=== PATIENT | female | born 1985 | race Caucasian/White ===

== ENCOUNTER 2024-11-20 05:51 | Day surgery (SDC) | payer OTHER, SELFPAY ==
[2024-11-11 07:10] LABS: Hematocrit 40.9 % (37-47); Hemoglobin 13.8 g/dL (12.0-15.0); Mean Corp Hgb Conc 33.7 g/dL (32-36); Mean Corpuscular Hgb 32.8 pg (27.0-32.0); Mean Corpuscular Volume 97.1 fL (81-99); Mean Platelet Vol. 9.2 fl (6.2-12.0); Platelet Count 350 K/mm3 (150-450); RBC Distribution Width CV 12.6 % (11.6-14.6); Red Blood Count 4.21 M/mm3 (4.2-5.4); White Blood Count 7.1 K/mm3 (4.4-11.0)
[2024-11-20] VITALS (8 sets, daily range): BP systolic 117–135; BP diastolic 83–95; PULSE 60–81; RESP 16–18; TEMP 36.2–36.7; O2SAT 97–100; BMI 39.1
--- OUTSIDE RECORDS SUMMARY | 2024-11-20 05:53 | XMS RPT_ITS | CCD ---
Author Organization [facility] Care Team Providers Care Child Study Team Director Name Role Phone Eun Stevenson PA-C Primary Care Provider [phone] Sarbjit MEJIA, Nolberto Kruse Primary Care Provider [phone] Sarbjit MEJIA, Nolberto Kruse Primary Care Provider [phone] Kanwal CAMEJO.GABRIELLEShilpa Unavailable [phone] WISAM ECHOLS Attending Unavailable LINDA HYDE Referring Unavailable SARBJIT, NOLBERTO Kruse Primary Care Unavailable NOLBERTO GANNON Attending Unavailable SARBJIT, NOLBERTO Kruse Primary Care Unavailable WISAM ECHOLS Attending Unavailable WISAM ECHOLS Referring Unavailable SARBJIT, NOLBERTO Kruse Primary Care Unavailable WISAM ECHOLS Referring Unavailable SARBJIT, NOLBERTO Kruse Primary Care Unavailable ALLAN FRANCO Attending Unavailable SARBJIT, NOLBERTO Kruse Primary Care Unavailable WISAM ECHOLS Referring Unavailable SARBJIT, NOLBERTO Kruse Primary Care Unavailable WISAM ECHOLS Attending Unavailable SARBJIT, NOLBERTO Kruse Primary Care Unavailable Sarbjit, Nolberto Primary Care Unavailable Allan Franco Referring Unavailable Allan Franco Attending Unavailable Medications Current Medications Medication Drug Class(es) Dates Sig (Normalized) Sig (Original) meclizine hydrochloride 12.5 mg oral tablet (6 sources) Antiemetic Start: 09-08-2024 take 1 tablet by mouth every six hours as needed for dizziness and dizziness meclizine (ANTIVERT) 12.5 mg tab Indications: Dizziness Take 1 tablet by mouth every 6 hours as needed (for dizziness.). 30 tablet 09/08/2024 Active multivitamin tablet (18 sources) take 1 tablet by mouth once daily multivitamin tablet Take 1 tablet by mouth once daily. Active take 1 tablet by mouth once altaf y multivitamin tablet Take 1 tablet by mouth once daily. 0 Active Comment on above: Take 1 tablet by juan manuel th once daily. Problems Active Problems Problem Classification Problem Date Documented Date Episodic/Chronic Cancer of cervix (2 sources) Atypical squamous cells of undetermined significance on cervical Papanicolaou smear; Translations: [Atypical squamous cells of undetermined significance on cytologic smear of cervix (ASC-US)] 08-18-2024 Episodic Conditions associated with dizziness or vertigo (2 sources) Dizziness; Translations: [Dizziness and giddiness] 09-08-2024 Episodic Headache; including migraine (1 source) Migraine with aura; Translations: [Migraine with aura, not intractable, without status migrainosus] Chronic Immunizations and screening for infectious disease (11 sources) Patient encounter status; Translations: [Encounter for screening for human immunodeficiency virus [HIV]] Onset: 08-04-2024 Episodic Menstrual disorders (1 source) Dysmenorrhea; Translations: [Dysmenorrhea, unspecified] 11-02-2024 Chronic Other female genital disorders (4 sources) Polyp of corpus uteri; Translations: [Polyp of corpus uteri] Onset: 09-29-2024 09-29-2024 Episodic Other nutritional; endocrine; and metabolic disorders (20 sources) Obese class II; Translations: [Obesity, unspecified] Onset: 11-02-2022 Chronic Other screening for suspected conditions (not mental disorders or infectious disease) (8 sources) Cancer cervix screening status; Translations: [Encounter for screening for malignant neoplasm of cervix] Onset: 08-04-2024 07-26-2023 Episodic Residual codes; unclassified (2 sources) FH: Cardiomyopathy; Translations: [Family history of ischemic heart disease and other diseases of the circulatory system] 09-08-2024 Episodic Sexually transmitted infections (not HIV or hepatitis) (1 source) Human papillomavirus deoxyribonucleic acid test positive, high risk on cervical specimen; Translations: [Cervical high risk human papillomavirus (HPV) DNA test positive] 09-19-2023 Episodic Unclassified (1 source) Pre-Op Visit Onset: 11-02-2024 Past or Other Problems Problem Classification Problem Date Documented Da te Episodic/Chronic Unclassified (1 source) Endometrial polyp 11-18-2024 Results Test Name Value Interpretation Reference Range Facility CBC-Complete Blood Cnt No Di ffon 11-11-2024 Erythrocyte distribution width (RBC) [Ratio] 12.6 % Normal 11.6-14.6 [facility] Comment on above: Performed By: #### B TSPAT, L100.0500 #### [facility] [address] [place], [address] Hematocrit (Bld) [Volume fraction] 40.9 % Normal 37-47 [facility] Comment on above: Performed By: #### B TSPAT, L100.0500 #### [facility] [address] [place], [address] Hemoglobin (Bld) [Mass/Vol] 13.8 g/dL Normal 12.0-15.0 [facility] Comment on above: Performed By: #### B TSPAT, L100.0500 #### [facility] [address] [place], [address] MCH (RBC) [Entitic mass] 32.8 pg High 27.0-32.0 [facility] Comment on above: Performed By: #### B TSPAT, L100.0500 #### [facility] [address] [place], [address] MCHC (RBC) [Mass/Vol] 33.7 g/dL Normal 32-36 [facility] Comment on above: Performed By: #### B TSPAT, L100.0500 #### [facility] [address] [place], [address] MCV (RBC) [Entitic vol] 97.1 fL Normal 81-99 [facility] Comment on above: Performed By: #### B TSPAT, L100.0500 #### [facility] [address] [place], [address] Platelet mean volume (Bld) [Entitic vol] 9.2 fL Normal 6.2-12.0 [facility] Comment on above: Performed By: #### B TSPAT, L100.0500 #### [facility] [address] [place], [address] Platelets (Bld) [#/Vol] 350 10*3/uL Normal 150-450 [facility] Comment on above: Performed By: #### Zara TSPAT, L100.0500 #### [facility] [address] [place], [address] RBC (Bld) [#/Vol] 4.21 10*6/uL Normal 4.2-5.4 [facility] Comment on above: Performed By: #### Zara TSPAT, L100.0500 #### [facility] [address] [place], [address] RDW SD 45.0 fl High 35.1-43.9 [facility] Comment on above: Performed By: #### Zara TSPAT, L100.0500 #### [facility] [address] [place], [address] WBC (Bld) [#/Vol] 7.1 10*3/uL Normal 4.4-11.0 [facility] Comment on above: Performed By: #### Zara TSPAT, L100.0500 #### [facility] [address] [place], [address] Type AND Screen - PAT ONLYon 11-11-2024 Ab SCREEN GEL Negative Normal [facility] Comment on above: Order Comment: Reaso n for Laboratory Test SURGERY [id number] No N N S HYSTEROSCOPY D C Performed By: #### Zara TSPAT, L100.0500 #### [facility] [address] [place], [address] CNOVon 11-02-2024 CNOV Office Visit (OBGYWM ) JANELLE YAN ([id number]) 1985 F Date Time Provider Department 11/02/24 10:50 AM ALLAN FRANCO During your visit today, we recorded the following information about you: Pulse Respiration Blood pressure Weight 78/minute 16/minute 104/70 95.4 kg Height 1.575 m Allan Franco MD 11/02/2024 11:30 AM Signed DATE OF SERVICE: November 02, 2024 PROBLEM: endometrial polyp DIAGNOSIS: endometrial polyp PAST SURGICAL HISTORY: PAST SURGICAL HISTORY Procedure Laterality Date DELIVERY ONLY 2011 , low transverse x 3, PAST MEDICAL HISTORY: PAST MEDICAL HISTORY Diagnosis Date NEGATIVE MEDICAL HISTORY SUBJECTIVE: First day of menses heavy. Dysmenorrhea with periods. Regular menstrual cycles SOCIAL HISTORY: Social History Tobacco Use Smoking status: Never Smokeless tobacco: Never Vaping Use Vaping status: Never Used Substance Use Topics Alcohol use: Not Currently Comment: 1-2 every 3 months. Drug use: Never ALLERGIES No Known Allergies Current Outpatient Medications on File Prior to Visit Medication Sig meclizine (ANTIVERT) 12.5 mg tab Take 1 tablet by mouth every 6 hours as needed (for dizziness.). multivitamin tablet Take 1 tablet by mouth once daily. No current facility-administered medications on file prior to visit. EMB: Component FINAL DIAGNOSIS A. 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 HEENT: Normocephalic, atraumatic, Mucus membranes moist without lesions. SKIN: No lesions. CHEST: Clear to auscultation. No wheezes or rales. Good air exchange. HEART: Regular rate and rhythm No S3 or S4. No gallops or rubs. BACK: Nontender. ABDOMEN: Soft, non-tender, non-distended, no masses, no hepatosplenomegaly. LOWER EXTREMITIES: There was no pitting edema. ASSESSMENT: pre op PLAN: 1) Discussed r/b/a hysteroscopy, DANDC, polypectomy, possible progesterone IUD insertion in detail. The rationale for the proposed surgery was discussed in addition to risks, benefits, and alternatives. General pre- and post-operative care was reviewed. Questions were answered. After discussion, the patient indicated a desire to proceed with the planned surgery. Allna Franco DO Medical Decision Making: Problems: Moderate: New problem with uncertain prognosis Risk: Moderate: Decision on minor surgery w/ risk factors Medical Decision Making Level: 4 - Moderate Allergies As of Date: 11/02/2024 (No Known Allergies) Date Reviewed: 11/02/2024 Reviewed by: Allan Franco MD - Fully Assessed Reason for Visit: Pre-Op Visit [1235] Primary Visit Diagnosis:Endometrial polyp [N84.0] Other Visit Diagnoses:Visit for pre-operative examination [Z01.818] Dysmenorrhea [N94.6] Prescriptions as of 11/02/2024 - meclizine (ANTIVERT) 12.5 mg tab Take 1 tablet by mouth every 6 hours as needed (for dizziness.). - multivitamin tablet Take 1 tablet by mouth once daily. Problem List As Of Date 11/02/2024 Noted Resolved Obesity, Class II, BMI 35-39.9 [E66.812] 11/02/2022 Encounter Status:Closed by ALLAN FRANCO on 11/02/24 Normal [facility] HISTORY PHYSICALon HISTORY PHYSICAL HNO ID: [id number] Author: ALLAN FRANCO MD Service: ? Author Type: Physician Type: H&P Filed: 11/02/2024 11:30 Note Text: DATE OF SERVICE: November 02, 2024 PROBLEM: endometrial polyp DIAGNOSIS: endometrial polyp PAST SURGICAL HISTORY: PAST SURGICAL HISTORY Procedure Laterality Date DELIVERY ONLY 2011 , low transverse x 3, PAST MEDICAL HISTORY: PAST MEDICAL HISTORY Diagnosis Date NEGATIVE MEDICAL HISTORY SUBJECTIVE: First day of menses heavy. Dysmenorrhea with periods. Regular menstrual cycles SOCIAL HISTORY: Social History Tobacco Use Smoking status: Never Smokeless tobacco: Never Vaping Use Vaping status: Never Used Substance Use Topics Alcohol use: Not Currently Comment: 1-2 every 3 months. Drug use: Never ALLERGIES No Known Allergies Current Outpatient Medications on File Prior to Visit Medication Sig meclizine (ANTIVERT) 12.5 mg tab Take 1 tablet by mouth every 6 hours as needed (for dizziness.). multivitamin tablet Take 1 tablet by mouth once daily. No current facility-administered medications on file prior to visit. EMB: Component FINAL DIAGNOSIS A. 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 HEENT: Normocephalic, atraumatic, Mucus membranes moist without lesions. SKIN: No lesions. CHEST: Clear to auscultation. No wheezes or rales. Good air exchange. HEART: Regular rate and rhythm No S3 or S4. No gallops or rubs. BACK: Nontender. ABDOMEN: Soft, non-tender, non-distended, no masses, no hepatosplenomegaly. LOWER EXTREMITIES: There was no pitting edema. ASSESSMENT: pre op PLAN: 1) Discussed r/b/a hysteroscopy, DANDC, polypectomy, possible progesterone IUD insertion in detail. The rationale for the proposed surgery was discussed in addition to risks, benefits, and alternatives. General pre- and post-operative care was reviewed. Questions were answered. After discussion, the patient indicated a desire to proceed with the planned surgery. Allan Franco, Medical Decision Making: Problems: Moderate: New problem with uncertain prognosis Risk: Moderate: Decision on minor surgery w/ risk factors Medical Decision Making Level: 4 - Moderate Normal [facility] 10-01-2024 CNPN Telephone (OBGYWM) AJNELLE YAN ([id number]) 1985 F Date Time Provider Department 10/01/24 WISAM ECHOLS OBGYWClaudia During your visit today, we recorded the following information about you: Lani Edmonds, FRAN 10/01/2024 3:51 PM Signed Wisam Echols MD to [facility] 10/01/24 3:30 PM Result Note Recommend hysteroscopy with DANDC and polypectomy for an endometrial polyp. If patient OK with that plan I carlos alberto refer her to one of my partners for the procedure. Wisam Echols MD PELVIC US I Lani Edmonds, FRAN 10/01/2024 3:51 PM Signed Left message for patient to call office. FRAN Duran Trisha, RN 10/01/2024 3:57 PM Signed Patient notified. She is okay with proceeding with scheduling surgery. Doesn't care which surgeon, but does want [facility]. She does work a lot of weekends, so when Carlie calls her back may want to call with a few options too. Do you need a surgery sheet? FRAN Reyes Karmon, MD 10/01/2024 4:43 PM Signed Surgery sheet for SW completed MD Geri Li Trisha, RN 10/01/2024 4:48 PM Signed Surgery sheet given to Carlie. FRAN Reyes Annalee, LPN 10/06/2024 10:20 AM Addendum Left message to call office. Next available surgery dates are 10/29/[address] Franco and 11/06/[address] Franco or Dr. Nair or 11/20/[address] Franco or Dr. Harris at [facility]. Patient will need scheduled for a pre-operative appointment. Emily Bond RN 10/06/2024 10:42 AM Signed Patient called back she would like surgery on 11/[address] Franco. Pre Op appointment scheduled for 11/02. Emily Bond RN Allergies As of Date: 10/01/2024 (No Known Allergies) Date Reviewed: 09/15/2024 Reviewed by: Wisam Echols MD - Fully Assessed Reason for Visit: Results [95] Prescriptions as of 10/15/2024 - meclizine (ANTIVERT) 12.5 mg tab Take 1 tablet by mouth every 6 hours as needed (for dizziness.). - multivitamin tablet Take 1 tablet by mouth once daily. Problem List As Of Date 10/01/2024 Noted Resolved Obesity, Class II, BMI 35-39.9 [E66.812] 11/02/2022 Encounter Status:Closed by ALLEGRA NEVAREZ on 10/01/24 Normal [facility] 09-30-2024 Indication endometrial polyp Impression Normal appearing retroflexed uterus that measures 95 mm x 55 mm x 66 mm. Endometrium measures 9.5 mm and contains a 9 x 9 x 6 mm hyperechoic area which is suggestive of an endometrial polyp. Both ovaries are visualized and appear normal with follicular change. No adnexal masses were observed. There is free fluid visualized in the peritoneal cavity. Recommendations Consider hysteroscopic evaluation as clinically indicated. History Medical History Surgery: section x 3 Surgery: Tubal ligation Menstrual History LMP on 09/28/2024. Cycle: regular cycle. Contraception: tubal sterilization Method Transabdominal, transvaginal, 3D ultrasound examination, Color Doppler examination. View: Adequate visualization Uterus Uterus: Visualized Uterus position: retroflexed Description of uterine malformations: none Myometrium: heterogeneous Endometrium: possible polyp Cervix details: normal Uterus length 95 mm Uterus width 66 mm Uterus height 55 mm Uterus Vol 179.1 cm Endometrial thickness, total 6.5 mm Fibroids: No fibroids identified Polyps: Polyps identified Uterine polyp D1 9 mm Uterine polyp D2 9 mm Uterine polyp D3 6 mm Uterine polyp mean 8.0 mm Uterine polyp findings: Anterior Right Ovary Rt ovary: Visualized Rt ovary morphology: premenopausal normal follicular Rt ovary D1 39 mm Rt ovary D2 22 mm Rt ovary D3 26 mm Rt ovary Vol 11.2 cm Left Ovary Lt ovary: Visualized Lt ovary morphology: premenopausal normal follicular Lt ovary D1 29 mm Lt ovary D2 23 mm Lt ovary D3 14 mm Lt ovary Vol 4.8 cm Cul de Sac Visualized. free fluid visualized: small Performed By: Ronda Araya RDMS Read By: Michelle Griggs M.D. MATERNAL MEDICINE [facility] 09-29-2024 Radiology Study observation (narrative) [facility] Pathology biopsy report Fabricio (Tiss)Ordered By: Dolores Bailey on 09-16-2024 Case Report Surgical Pathology Report Case: [id number] Authorizing Provider: Wisam Echols MD Collected: 09/15/2024 10:46 AM Ordering Location: OB/Gynecology Received: 09/15/2024 01:17 PM Pathologist: Dolores Bailey MD Specimen: Endometrium, Biopsy [facility] Work Phone: Clinical History [id number] bG KfGoLyQnSfJwPjBwp1TSRv ffI3Cbx3TQJbMGumgL9xIL RkYHvxE8lkraDgqLLkBXHl FGr7wC6ouQxeuE8nUaQcEi BqPATOR6XFJYZrxIxlIWIk fQ== [facility] Work Phone: Diagnosis Comment b4ublYViFYGioBPdFDFj NV fssyVjPVIgeKHjI6Gvsssc PImrXB3fYY4moWxxjPHbwT GlVPWwIaRxh1jzs038lMLy x3beHLOVcvndwLt9tImxL1 9bb2H1YyrzB06btUKyWAC4 HSClBVZeaTGiRWWaXET8EC JdjPDsW4tqROKhWV1yxwlc HQhwLWwbGRBjaFM0WHLhzH LnZ6YxQFEbUQgyXTZdrjo9 CdYnFj0bfILldNmfPMnzEG JkXHBsYWluXGZzMjBccGFy NWZvLZGlxV3coZ9wjqXogw N5rWxpGKLvCO7bOHBdeWEr JAEiz0TayDZdsjOzk4YiOP Xmz8FmfIBat1LlcOdfPPZi dGllbnQncyByZWNlbnQgUG VkLAWzy7QtgjSkbAx4ZXtM FcK7LBVzLDo3DnbbTKrzSK J9 [facility] Work Phone: Disclaimer x3rgiZAyHFYqo4wtXVCm bG FuZzEwMzNcZnRuYmpcdWMx IHtccnRmMVxlcGljMTExMD Wnx9ert4sydDAjIBEya8vg p1RspQToxXDtUGusdQSbsg Oqni89vHC9cW21BK7uHTRn OlQ7JKBiekZ4Bua5BEYtJY TywFFrW376h8nci1uryhUt eIW7SMDsJXHdF3HnIN8gWA OwxATnS81cePBdRZW2AYUw KQZlgLEmUKNeBAU5SNCcjA WlI2cyLXHvKR7sulmzKGxr BHdfLWFngAQ7HODvvQJoL5 TvAISwIPdjYWXaplj4NeFx Bv7krPCvdBfqHKyeD7ilmB 4wMuE4BMwxW6syqJ9iMZo5 JZrqSPAukZB9wiN0QWPgrY RiD1QweW4lGVZmTJ7stxd5 s0juQHC8WZpvZVYzYlA7om C8GMFfmVKzYTburMAajlnp LWRqDMUmD4GgCSxjMh9sPI BtddelNNZ6LNvddJCiPWXv n1QwEJgIVNycNLylC9bqiP 1lcjpccGFyXGIwXGNmMCBQ EJEpe2IbPP0sGXJgqIDqMI U6YKAsc9KsR1Wxo1VjsW5i nV4ikYvbbV6vdAUmnLFobQ nrjU5nwJ3hHuq0i0Mqa2Uo zuQiKUVnEBPueVUpmN6oCK 9qFyFuxc2pjTI9EHh1HsTy ZCo4MHYsc76roMEwaJIcfQ S5UGSfCRJhTBMtbTExeMdl ZWQgYnkgdGhlIHBlcmZvcm 4bifbceYLap5SbbV7teJW6 jQUdzX1dF4bgwfTbHW6xKE VdyN3rOiczQIJxFoGceQUK HpPLd96oxBIwLLYecZvffG 7hiKRprqXiVTNxf1ZmrH8a nOADXREcV3qdMYWIJYSnra IhJN40HOdWEHxwDTOvbJD7 dgNXe8WokRQpfMcaTNift5 8zM2QsGXZlzXISc5HaySEs eCzbOtmgresqIXDTGTT0p1 1iTM1qnXu5IWraUC3iqdM0 QDkxr2QftMBdRPXNdsWgBP 8uNyt2POStWOWnqYTqiEIF SY59QZJyVR7cglHypxLWJQ CvnTvnVr3odMgoTL6iaZu4 CInySY5oOSPuiS1tLVwvm7 UpcKXbWQNiocLfQO8fsp3u nbCla34lbTF2SB85PJurgC knN4zQAXEcJUM1nQTzpDXx qQPvBM6jFEXxniAid6BjBV 3xLDDrVUCcMVDrx6YiGR3v rCBwj3CxiBQ1JFAmGXTdPD YrJVYuDRZkp8CdNAZjzk44 XIRvQguanCefHOJQHE8wWw RgUFpVIKidABKjL8ZlOZDy PVG2pyZrnxXCGXkQBKMjZW B5SXasLmxnKOO9ocNsJRBt q9WcPJgvH4jzO64zjUownV b0yCU1RKI1lM4xDuPZgVQw IRH4YAL2edViddFbtSYsXF Igz4MjR0iputesHEispKTz cM1eSNSoTEVwFECjTXQmd0 VjDVPhf3AdHeWwehQySAJd JQAaOWXzlL25YYB0vPkhkZ omktFmXG0dFZCploPdEWXf JWAgqA7dIX2idWSdxtBjIH 0jME2dL3H9sFRqJRFbvyLz d8ekDCV8OMxiPWRveGUosS LrRXPwuYvpQBAoya11 [facility] Work Phone: FINAL DIAGNOSIS o9yipEUbEVEreOOwPCXf NV iothTfXICxaNOrY6Ydwzgz BSrpWE3bNR0iyLomiCPhjT CsTQVjAgFyu8rts947iTZk e0txQUUOoidtjPz6mGdnK7 5ik2Q9DtedP77rsOKsOBN8 KCWdKISbvCXhOGKmXCR2EN OtwEFdI4vkSMYfDX9jhojp QUbfDGjhYJUbfAF5MGMvvU QwV5StDVPoGKitKBPzsdo7 KpVcYl4otAIaeVurYGyjGJ JkXHBsYWluXGZzMjBccGFy SCUlTGI8QWI9finkCQ7qt3 8prYStrG6kESAsr4KtmZyt PNDkRERse76pPSQsHGFjmA DjsPxcDVXaoQh8ECJevgNh nYV4ubk5nJT7zLZxVPAwtf 1lfWBcRJ9zx32deGDkeQbl BGcdMKAjR96vyGExxBhxpW MxME5QbpPvhCDhmFTkj4Uv BuDneXfjUCKeRQ8cZSCpoV FsIHBvbHlwXHBhclxwYXJ9 [facility] Work Phone: Gross Description p6klyLJnKIYgbGWmDSVa NV xvxvGeRKGrgJQxN5Uculvo VVplTX6oQN7wbVeqyPZdyZ BlVMAfZaXit4xpq858dXSi i5okDQDGpkpjfMh8wWrmB9 0jc8B7RlxsX54teDRfRXC6 TDZsSMTesAUtHUNlEUK7WJ GjsKNbZ8vkZXNfFC9gshhc RJjpLBqvGTYpsUV6KNCeeE GzK3KeYDTeGHvdCFEjaqj7 GhXwQq1sxHRvdAagTVtiWl pxxDcqb8JxdRAhAVmiVGJg MMWfYFjtyjscABi4NAUxSD avyXIhDM5wsVpvTfanzTip u9DfhEFiJSxdMAMlAZVbDA nmMBJqO7XRSWAzYBV2WQDh VxMoLIv4JNv6AY8HWpPwMK W0ZICuLezsZjKuXVl2VOht SG2SJOM4RCE8ZBCwTharZR L2UdB0JYjssPLjEKiwq7Lf MyBcXGZsIFxcbmMgXFxmcn 1ccGFyZFxwbGFpblxmczIw TMLqZOZzEV6xTSGvdGVxAM YRhC9wo7yfuPTlXEKrpqNt b2RxRXotaKowRSEeNiYixG nfnE2mZsYbRIWDDXDxkCDp TSQhgqCxr5NoJHoynmFsxe UgbXVsdGlwbGUgdGFuLCBz n7C3DXLmFAUjWKE5JVTlI9 2stmMiQP9fWIYrv7D6JIPs wInvBPC6hCFmTExejSN3oD 8tiEYinZL6QTVgHXvzDTpk kbPkJETzgtfgbK0zQf40HJ ysLk2iIEmqBP77WEGrGjBN n7CqgQp6PLD1Nx1pjALyLY PzdaLshrArP0Pff1B8oISx IFxwYXJccGFyZFxwYXIgQ0 wgQXByaWwgMjIsIDIwMjUg NVy4MVEWWMkgMBTqf4RoXI ynoGbeAHYuXmWhH2Mbt6Eo XSgbvIzkXCJbp08joJKuCn 1bbDZbPRF6UBGrPSKqwJGy VWAEgOhngGQvNQi8TRZnPE UibSlhDND8KV6kDMTvFEBq zCXbGOzcV6zjZUMaHGQ7BW OphDXqDPN5AD2poUqdGLRt S2AzJ2BvxiE0ARGnab6= [facility] Work Phone: Performing Lab r9sqsJGvHAVvjEDtXCIj Ml nhdzHhVFZktBWnV0Plsify RVclKK2iIU0kqUcdrLLtkW KdWEQrTtYvi5ilo410iNVz n9hbEXPTqrklpVx2hQicC0 4vs2F0DxkkK07uwUNlZGK6 TUQyJCTwzSXgMBDeQRP1FV UiuIMoL7tfSWYkRD5cgihv UMxoSZqhMPTscSM8BRYmwO YgN9XaMSEcNHrwONAkrbi8 VcJfQk4xoNFlmAobQVxjO6 nahQ5kJuA0CBwfE9xovD2n QUh2DRitBWObeRW0jmQ6QD SjxAVnG0SeiK6hZECjCH8j kka1f6mhPLE0ZHsqEUQaPk T0bpQ3ORHazZEnGYqrkZGq otjxliJwLFYjJIgto1D2lA JqvX61LLVyflA6TROgn30p rGWpQb8ppJMbUCX4GvWXrT Y2FKojuvBuI9tyuvzpLG7c mJ9rI1BwxFTfXJycp6FaeG OzJYddSn1fHLKhmrdgWZd0 HXHkVODwcSooJII4HU08SC wgRGVzayBMMjEsIENsZXZl zGTiRIVIHQH0MRS9WOIzRT HKZKCpFVV8KPG6RIVeYNKj iNEkCCziJKMvSFEsv1YebI 1wrIRUiRIcG2DuxsoeH5Fm jDLdUBrpshYjO9zvWBOMDP xwYXJ9 [facility] Work Phone: [facility] Work Phone: CNOVon 09-15-2024 CNOV Office Visit (OBGYWM ) JANELLE YAN ([id number]) 1985 F Date Time Provider Department 09/15/24 10:10 AM WISAM ECHOLS During your visit today, we recorded the following information about you: Blood pressure Weight Last Period 138/80 96.2 kg 09/01/24 Wisam Echols MD 09/15/2024 10:42 AM Signed Medical Laboratory Manager offered: Patient accepts, visit chaperoned by Malka Agustin MA. Janelle is a 39 year old Female who presents today for an endometrial biopsy for MIESHA pap. test: negative UNIVERSAL PROTOCOL / SAFETY CHECKLIST Procedure to be Performed: Endometrial Biopsy Sign In: A Moment of CARE was completed. Appropriate PPE (Personal Protective Equipment) worn by all providers involved with the procedure. Special equipment not required. Patient/Surrogate Stated/Verified: Patient name, Date of , Relevant allergies, and The intended procedure Time Out: Relevant labs, photos, and/or imaging studies have been reviewed. Intended patient and procedure match the source document(s) (e.g. consent, HANDP, associated studies [imaging, pathology]) match the intended patient and procedure. Consent obtained and matches the intended procedure. Yes. Correct side/site is not applicable. Medications required for this procedure are verified. are not applicable. Fire risk assessed and is not applicable. Implants: are not applicable. Sign Out: Specimens are all correctly labeled and sent. All instruments, equipment, possible retained foreign bodies are accounted for. Yes. The post-procedure plan of care has been communicated to the patient or surrogate. PROCEDURE: EXTERNAL GENITALIA: Normal in appearance without lesions VAGINA: Normal in appearance without lesions BIOPSY: Speculum placed into the vagina with excellent visualization of the cervix. Cervix cleaned with betadine. Anterior lip of cervix grasped with single toothed tenaculum. Uterus sounded to 8 cm. Pipelle inserted into the uterus without difficulty and endometrial biopsy obtained. Specimen labeled and sent to pathology. Hemostasis achieved. Procedure Summary: Patient tolerated procedure well. ASSESSMENT: MEISHA pap PLAN: Specimens labeled and sent to Pathology. Will notify patient of results in 1-2 weeks. MD Vamsi Li Amanda, MA 09/15/2024 10:04 AM Signed YOUR RECOVERY After your biopsy you may have: Vaginal bleeding (less than a normal menstrual period) Mild cramping Do NOT put anything in the vagina for 1 week after your endometrial biopsy. This includes: tampons douches and refraining from having sexual intercourse If you have any discomfort, you may take an over the counter pain medication (motrin, advil, ibuprofen, tylenol, etc). If this does not relieve your discomfort, contact the office. It is okay to wear a sanitary pad until the discharge and spotting stops. RISKS Although problems seldom occur with endometrial biopsies, there can be some complications. You may feel faint during and shortly after the procedure as well as have some bleeding after the procedure. There is also a risk of infection after the procedure. These complications are rare and can be easily treated. You should contact you doctor is you have any of the following: Heavy bleeding (more than your normal period) Bleeding with clots Severe abdominal pain Fever (more than 100.4F) Foul smelling vaginal discharge RESULTS We will have the results of your biopsy in 1-2 weeks. If you do not hear the results of your biopsy after 2 weeks, please contact the office for the results. If you have any additional questions or concerns please do not hesitate to contact the office. Referring Provider: WISAM ECHOLS [[id number]] Allergies As of Date: 09/15/2024 (No Known Allergies) Date Reviewed: 09/15/2024 Reviewed by: Wisam Echols MD - Fully Assessed Reason for Visit: Endometrial Biopsy [1643] Primary Visit Diagnosis:Atypical glandular cells of undetermined significance (MIESHA) on cervical Pap smear [R87.619] Order(s):UA DIP,URINE HCG (POC) [[id number]] Order #: [id number]. #:[id number] ENDOMETRIAL BIOPSY [[id number]] Order #: [id number] SURGICAL PATHOLOGY [[id number]] Order #: [id number] Prescriptions as of 09/15/2024 - meclizine (ANTIVERT) 12.5 mg tab Take 1 tablet by mouth every 6 hours as needed (for dizziness.). - multivitamin tablet Take 1 tablet by mouth once daily. Problem List As Of Date 09/15/2024 Noted Resolved Obesity, Class II, BMI 35-39.9 [E66.812] 11/02/2022 Other instructions from your clinician: YOUR RECOVERY After your biopsy you may have: Vaginal bleeding (less than a normal menstrual period) Mild cramping Do NOT put anything in the vagina for 1 week after your endometrial biopsy. This includes: tampons douches and refraining from having sexual intercourse (more content not included)... [facility] Pathology biopsy report Fabricio (Tiss)on 09-15-2024 AP DISCLAIMER [facility] Comment on above: Order Comment: Speci men Type: TISSUE SPECIMENOrdering Facility: [facility] Address: [address] [place] [address] Result Comment: Alfonzo bush Developed Test (LDT) Disclaimer: Performance characteristics of immunohistochemical, immunofluorescent, and chromogenic in-situ hybridization tests have been determined by the performing laboratory within [facility]'s [facility] Pathology and Laboratory Medicine Department ([facility], [facility], [facility], [facility], [facility], [facility], or [facility]) in a manner consistent with CLIA requirements. One or more of these tests may not have been cleared or approved by the FDA. RT-PLM is regulated under CLIA as qualified to perform high-complexity testing. These tests are used for clinical purposes. These should not be regarded as investigational or for research. Positive and negative controls stain appropriately. Performed By: #### 6 6121-5 ####[facility] LABCLIA [id number] [place] [id number] [place] CASE REPORT [facility] Comment on above: Order Comment: Speci men Type: TISSUE SPECIMENOrdering Facility: [facility] Address: [address] [place] [address] Result Comment: Surg ica Pathology Report Case: [id number] Authorizing Provider: Wisam Echols MD Collected: 09/15/2024 10:46 AM Ordering Location: OB/Gynecology Received: 09/15/2024 01:17 PM Pathologist: Dolores Bailey MD Specimen: Endometrium, Biopsy Performed By: #### 6 6121-5 ####[facility] LABCLIA [id number] [address] [address] [place] CLINICAL HISTORY MIESHA pap Normal [facility] Comment on above: Order Comment: Speci men Type: TISSUE SPECIMENOrdering Facility: [facility] Address: [address] [place], [place] [address] Performed By: #### 6 6121-5 ####[facility] LABCLIA [id number] [address] [place] [address] [place] DIAGNOSIS COMMENT Normal [facility] Comment on above: Order Comment: Speci men Type: TISSUE SPECIMENOrdering Facility: [facility] Address: [address] [place] [address] Result Comment: The findings in this endometrial biopsy do not account for the patient's recent Pap test result ([id number]). Performed By: #### 6 6121-5 ####[facility] LABCLIA [id number] [place] [id number] [place] FINAL DIAGNOSIS [facility] Comment on above: Order Comment: Speci men Type: TISSUE SPECIMENOrdering Facility: [facility] Address: [address] [place] [address] Result Comment: A. 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 (see comment) -Fragments of benign endometrial polyp at 1532 EDT Performed By: #### 6 6121-5 ####[facility] LABCLIA [id number] [address] [place] [address] [place] FINAL PERFORMING LAB Normal [facility] Comment on above: Order Comment: Speci men Type: TISSUE SPECIMENOrdering Facility: [facility] Address: [address] [place] [address] Result Comment: Diag nostic interpretation performed at: [facility], [address] [place] [address] CLIA# [id number] Damage Inside Adjuster: Trever Mckeon MD Performed By: #### 6 6121-5 ####[facility] LABCLIA [id number] [place] [address] [place] GROSS DESCRIPTION Normal [facility] Comment on above: Order Comment: Speci men Type: TISSUE SPECIMENOrdering Facility: [facility] Address: [address] [place] [address] Result Comment: A. E ndometrium, Biopsy Received in formalin are multiple garces, soft feathery segments of tissue mixed with gelatinous material aggregating to 2.6 x 2.0 x 0.4 cm. Totally submitted in one cassette. CL September 15, 2024 9:54 PM Gross examination performed at [facility], [address] [place] [address] Performed By: #### 6 6121-5 ####[facility] LABIA [id number] [place] [address] [place] UA DIP,URINE HCG (POC)on Beta HCG ( test) Ql (U) Negative Negative [facility] Comment on above: Location:[facility], [facility] [place], [address] Glass Embosser (POCT) Internal QC [facility] Location:[facility], [address] [place], [place], [address] [place] [address] POINT OF CARE [facility] CNOVon 09-08-2024 CNOV Office Visit (INTMWS ) JANELLE YAN ([id number]) 1985 F Date Time Provider Department 09/08/24 9:00 AM NOLBERTO GANNON INTMWS During your visit today, we recorded the following information about you: Pulse Blood pressure Weight 70/minute 123/82 96 kg Nolberto Gannon MD 09/08/2024 10:00 AM Signed This note was created using Kenguruter. Subjective Patient presents with: Dizziness Nausea Recording using ambient Vizimax software for draft documentation of the visit was discussed with the patient/authorized lead generation representative; all questions welcomed and answered. Patient/authorized lead generation representative agreed to proceed Janelle is a 39-year-old female, with a family history of hypertrophic cardiomyopathy, presenting with episodes of dizziness and nausea. Janelle reports two recent episodes of dizziness and nausea upon getting out of bed, one occurring yesterday and the other approximately two weeks prior. Each episode lasted almost the entire day and half a day, respectively. She describes the dizziness as similar to vertigo, with a sensation of imbalance. During these episodes, she also felt hot and flushed but denies any fever. She denies any weakness, numbness, emesis, syncope, or near-syncope. She also denies any respiratory symptoms, otalgia, hearing loss, chest pain, tightness, palpitations, or dyspnea. She did experience a headache during the episodes. She denies any issues with vision that could be contributing to the dizziness. Janelle checked her blood pressure yesterday, which was 141/76, higher than her usual readings in the 120s/80s. Her blood pressure was normal today. She has a family history of hypertrophic cardiomyopathy, with her brother being affected. Her children have been evaluated by a meter calibrator and were supposed to undergo genetic testing, which has not been done yet. She has not had an EKG herself. She also reports experiencing seasonal allergies, which is new for her, with symptoms of rhinorrhea and eye itching. She has had occasional tinnitus a few weeks ago but denies any recent episodes. She denies any issues with depression or anxiety and has not had any recent issues with migraines, except for one incident where she noted peripheral vision changes 2 years ago.. Review of Systems Per HPI. ACTIVE PROBLEM LIST Obesity, Class II, Bmi 35-39.9 Social History Tobacco Use Smoking status: Never Smokeless tobacco: Never Vaping Use Vaping status: Never Used Substance Use Topics Alcohol use: Not Currently Comment: 1-2 every 3 months. Drug use: Never Current Outpatient Medications Medication Sig multivitamin tablet Take 1 tablet by mouth once daily. No current facility-administered medications for this visit. Objective BP 123/82 (BP Site: Left Arm, BP Position: Supine, BP Cuff Size: Large Adult) Pulse 70 Wt 96 kg (211 lb 10.3 oz) LMP 07/12/2024 (Exact Date) BMI 38.71 kg/m? Physical Exam Constitutional: Appearance: She is not ill-appearing. HENT: Head: Normocephalic. Right Ear: Tympanic membrane normal. Left Ear: Tympanic membrane normal. Nose: No congestion or rhinorrhea. Mouth/Throat: Mouth: Mucous membranes are moist. Pharynx: Oropharynx is clear. Eyes: Extraocular Movements: Extraocular movements intact. Right eye: No nystagmus. Left eye: No nystagmus. Conjunctiva/sclera: Conjunctivae normal. Pupils: Pupils are equal, round, and reactive to light. Cardiovascular: Rate and Rhythm: Normal rate and regular rhythm. Heart sounds: No murmur heard. No gallop. Pulmonary: Breath sounds: Normal breath sounds. Musculoskeletal: Right lower leg: No edema. Left lower leg: No edema. Neurological: Mental Status: She is alert. Cranial Nerves: No cranial nerve deficit. Sensory: No sensory deficit. Motor: No weakness. Coordination: Coordination normal. Gait: Gait normal. EKG RESULTS: Low voltage QRS, otherwise normal. Assessment and Plan 1. Dizziness - ICD9: 780.4, ICD10: R42 (primary diagnosis) Consistent with vertigo. - ECG COMPLETE - MECLIZINE 12.5 MG TABLET See printed instructions or information. 2. Family history of hypertrophic cardiomyopathy - ICD9: V17.49, ICD10: Z82.49 Baseline EKG done. - ECG COMPLETE 3. Screening for depression - ICD9: V79.0, ICD10: Z13.31 - DEPRESSION SCREENING 4. Encounter for screening examination for other mental health and behavioral disorders - ICD9: V79.8, ICD10: Z13.39 - ANXIETY SCREENING MD Sarbjit Yan Victor H, MD 09/08/2024 9:54 AM Signed We discussed your recent episodes of dizziness and nausea: - These symptoms are consistent with vertigo. - I sent a prescription for Meclizine 12.5 mg to your preferred [facility] pharmacy. Take one tablet every 6 hours as needed for dizziness. - Avoid sudden movements of your head to help prevent dizzine (more content not included)... [facility] [id number] 09-08-2024 ECG01 Ventricular Rate : 6 7 BPM Atrial Rate : 67 BPM P-R Interval : 186 ms QRS Duration : 76 ms Q-T Interval : 412 ms QTC Calculation(Bazett) : 435 ms Calculated P State [place] : 7 degrees Calculated R State [place] : 16 degrees Calculated T State Line : 23 degrees NORMAL SINUS RHYTHM Confirmed by MD SIMS QARAB ([id number]) on 09/09/2024 4:44:47 PM NAME : JANELLE YAN PID : [id number] : 1985 Gender : Female Race : ORD : Procedure Date : Sep 08 2024 09:49:56 Edit Date : Sep 09 2024 16:44:48 Diagnosis: NORMAL SINUS RHYTHM Confirmed by MD SIMS QARAB ([id number]) on 09/09/2024 4:44:47 PM Test Reason : Location : [facility] : [facility] Overread By : MD SIMS QARAB Edited By : MD SIMS QARAB Referred By : Nolberto Gannon Acquired by : Negar Reeder [facility] CNOVon 08-18-2024 CNOV Office Visit (OBGYWM ) JANELLE YAN ([id number]) 1985 F Date Time Provider Department 08/18/24 9:00 AM WISAM ECHOLS OBSYLVIAWClaudia During your visit today, we recorded the following information about you: Blood pressure Weight 118/78 95.1 kg Wisam Echols MD 08/18/2024 9:30 AM Signed Medical Laboratory Manager offered: Patient accepts, visit chaperoned by Malka Agustin. MA. Luis is a 39 year old Female who presents today for a colposcopy. The patient's last pap smear was ASCUS with positive HPV from July 2024. Patient has a history of abnormal pap: Yes. The patient has had prior treatment: Colpo. test: negative UNIVERSAL PROTOCOL / SAFETY CHECKLIST Procedure to be Performed: Colposcopy with Possible Biopsy Sign In: A Moment of CARE was completed. Appropriate PPE (Personal Protective Equipment) worn by all providers involved with the procedure. Special equipment not required. Patient/Surrogate Stated/Verified: Patient name, Date of , Relevant allergies, and The intended procedure Time Out: Relevant labs, photos, and/or imaging studies have been reviewed. Intended patient and procedure match the source document(s) (e.g. consent, HANDP, associated studies [imaging, pathology]) match the intended patient and procedure. Consent obtained and matches the intended procedure. Yes. Correct side/site is not applicable. Medications required for this procedure are verified. Fire risk assessed and is not applicable. Implants: are not applicable. Sign Out: Specimens are all correctly labeled and sent. All instruments, equipment, possible retained foreign bodies are accounted for. Yes. The post-procedure plan of care has been communicated to the patient or surrogate. PROCEDURE: EXTERNAL GENITALIA: Normal in appearance without lesions VAGINA: Normal in appearance without lesions CERVIX: Speculum placed in vagina and excellent visualization of cervix achieved. Cervix swabbed x 3 with 3% acetic acid solution. Cervix grossly normal. Squamocolumnar junction visualized. No acetowhite changes, punctations, mosaicism or atypical vasculature noted. BIOPSY: Done at 3:00, 6:00, 9:00, and 12:00 ECC: done HEMOSTASIS: Obtained with silver nitrate and pressure Procedure Summary: Patient tolerated procedure well and colposcopy was adequate. ASSESSMENT: Atypical squamous cells of undetermined significance (ASC-US). Atypical glandular cells, endocervical type. HRHPV 16 positive PLAN: Specimens labeled and sent to Pathology. Will notify patient of results in 1-2 weeks. Post-procedure instructions reviewed and written material given to the patient. If indicated, lesion by colpo is amenable to office LEEP as lesion is small. MD Vamsi Li Amanda, MA 08/18/2024 9:01 AM Signed YOUR RECOVERY It may take a few weeks for your cervix to heal. While your cervix heals, you may have: - Vaginal bleeding (less than a normal menstrual period) - Mild cramping - A brown-black vaginal discharge (similar to coffee grounds) which is a result of the paste used to help stop bleeding from the procedure Do NOT put anything in the vagina for 1 week after your colposcopy if your doctor does a biopsy of your cervix. This includes sex, tampons, and douches. If you have any discomfort, you may take an over the counter pain medication (motrin, advil, ibuprofen, tylenol, etc). If this does not relieve your discomfort, contact your doctor's office for a prescription strength pain medication. It is okay to wear a sanitary pad until the discharge and spotting stops. RISKS Although problems seldom occur with colposcopy, there can be some complications. You may feel faint during and shortly after the procedure as well as have some bleeding and vaginal discharge after the procedure. There is also a risk of infection after the procedure. These complications are rare and can be easily treated. You should contact you doctor is you have any of the following: - Heavy bleeding (more than your normal period) - Bleeding with clots - Severe abdominal pain - Fever (more than 100.4F) - Foul smelling vaginal discharge RESULTS If a biopsy was taken, we will have the results of your biopsy in 1-2 weeks. If you do not hear the results of your biopsy after 2 weeks, please contact your physicians office for the results. Depending on the biopsy results, your doctor will determine your follow up plan which may include further testing or treatments. STAYING HEALTHY After the procedure, you will need to see your doctor for follow up visits during the year. At these visits your doctor will check the health of your cervix with a pap smear. After three normal pap smears, your doctor will allow you to return to having exams once a year. If you have another abnormal pap smear, you may need closer follow up for longer or you may (more content not included)... [facility] Pathology biopsy report Fabricio (Tiss)on 08-18-2024 AP DISCLAIMER [facility] Comment on above: Order Comment: Speci men Type: TISSUE SPECIMENOrdering Facility: [facility] Address: [address] [place] [address] Result Comment: Alfonzo bush Developed Test (LDT) Disclaimer: Performance characteristics of immunohistochemical, immunofluorescent, and chromogenic in-situ hybridization tests have been determined by the performing laboratory within [facility]'s [facility] Pathology and Laboratory Medicine Department ([facility], [facility], [facility], [facility], [facility], or [facility]) in a manner consistent with CLIA requirements. One or more of these tests may not have been cleared or approved by the FDA. RT-PLM is regulated under CLIA as qualified to perform high-complexity testing. These tests are used for clinical purposes. These should not be regarded as investigational or for research. Positive and negative controls stain appropriately. Performed By: #### 6 6121-5 ####[facility] LABCLIA [id number] [address] [place] [address] [place] CASE REPORT [facility] Comment on above: Order Comment: Speci men Type: TISSUE SPECIMENOrdering Facility: [facility] Address: [address] [place] [address] Result Comment: Surg [facility] Pathology Report Case: [id number] Authorizing Provider: Wisam Echols MD Collected: 08/18/2024 09:29 AM Ordering Location: OB/Gynecology Received: 08/18/2024 12:00 PM Pathologist: Gale Singh MD Specimens: A) - Endocervix, Curettings B) - Cervix, Biopsy, 3 C) - Cervix, Biopsy, 6 D) - Cervix, Biopsy, 9 E) - Cervix, Biopsy, 12 Performed By: #### 6 6121-5 ####[facility] LABCLIA [id number] [address] [place] [address] [place] CLINICAL HISTORY Positive Normal [facility] Comment on above: Order Comment: Speci men Type: TISSUE SPECIMENOrdering Facility: [facility] Address: [address] [place] [address] Performed By: #### 6 6121-5 ####[facility] LABCLIA [id number] [address] [address] [place] FINAL DIAGNOSIS [facility] Comment on above: Order Comment: Speci men Type: TISSUE SPECIMENOrdering Facility: [facility] Address: [address], [place] [address] Result Comment: A. E ndocervix, curettage: Fragments of benign inflamed squamous mucosa and scant endocervical mucosa. B. Cervix, 3:00, biopsy: Benign squamous mucosa and scant endocervical mucosa. C. Cervix, 6:00, biopsy: Benign squamous mucosa. D. Cervix, 9:00, biopsy: Benign squamous mucosa. E. Cervix, 12:00, biopsy: Fragments of superficial benign squamous mucosa. at 1453 EDT Performed By: #### 6 6121-5 ####[facility] LABCLIA [id number] [address] [address] [place] FINAL PERFORMING LAB Normal [facility] Comment on above: Order Comment: Speci men Type: TISSUE SPECIMENOrdering Facility: [facility] Address: [address] [place] [address] Result Comment: Diag nostic interpretation performed at: [facility], [address] [place] [address] CLIA# [id number] Damage Inside Adjuster: Trever Mckeon MD Performed By: #### 6 6121-5 ####[facility] LABCLIA [id number] [address] GROSS DESCRIPTION Normal [facility] Comment on above: Order Comment: Speci men Type: TISSUE SPECIMENOrdering Facility: [facility] Address: [address] [place] [address] Result Comment: A. E ndocervix, Curettings Received in formalin are multiple garces, soft feathery segments of tissue admixed with mucinous material aggregating to 0.3 x 0.1 x 0.1 cm. Totally submitted in one cassette. B. Cervix, Biopsy Received in formalin are multiple pieces of garces-brown, soft tissue aggregating to 0.3 x 0.1 x 0.1 cm. Totally submitted in one cassette. C. Cervix, Biopsy Received in formalin are multiple pieces of garces-white, soft mucosal covered tissue aggregating to 0.7 x 0.2 x 0.2 cm. Totally submitted in one cassette. D. Cervix, Biopsy Received in formalin is one piece of garces-white, soft tissue measuring 0.3 x 0.2 x 0.2 cm. Totally submitted in one cassette. E. Cervix, Biopsy Received in formalin is one piece of garces-white, soft mucosal covered tissue measuring 0.3 x 0.1 x 0.1 cm. Totally submitted in one cassette. Gross examination performed at [facility], [address] August 18, 2024 3:57 PM Performed By: #### 6 6121-5 ####[facility] LABCLIA [id number] [place] [address] [place] UA DIP,URINE HCG (POC)on Beta HCG ( test) Ql (U) Negative Negative [facility] Comment on above: Location:[facility], [address] [place], [address] Glass Embosser (POCT) Internal QC [place] [facility] Location:[facility], [facility] [place], [address] [facility] POINT OF CARE [facility] CNOVon 08-04-2024 CNOV Office Visit (OBGYWM ) JANELLE YAN ([id number]) 1985 F Date Time Provider Department 08/04/24 4:00 PM WISAM ECHOLS OBGYWM During your visit today, we recorded the following information about you: Blood pressure Weight Height Last Period 120/80 94.3 kg 1.575 m 07/12/24 Wisam Echols MD 08/04/2024 4:10 PM Signed Medical Laboratory Manager offered: Patient declines. Janelle is a 39 year old who presents for an annual gynecologic exam without complaints. Age at Menarche: 14-15 Still get period: Yes LMP: 07/12/2024 Menses: cycles every 28-30 days and 4-5 days of flow Menstrual flow: Moderate Bleeding amount bothersome: No Bleeding between periods: No Period symptoms: Acne and cramps Sexually active: Yes Time with current partner: 5 years Contraception: Tubal Ligation Contraception frequency: Always HPV vaccine: Yes HPV:positive Last pap smear: 07/26/2023, negative History of abnormal pap: Yes Colposcopy: Yes: repap 1 year Leep: No. Cone biopsy: No. 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: Sexual Activity: Yes; Male Contraception: Tubal Ligation PAST MEDICAL HISTORY Diagnosis Date NEGATIVE MEDICAL HISTORY PAST SURGICAL HISTORY Procedure Laterality Date DELIVERY ONLY 2011 , low transverse x 3, FAMILY HISTORY Problem Relation Age of Onset No Known Problems Mother None Father Heart disease Brother 1 congenital Heart disease Heart Brother hypertrophic cardiomyopathy No Known Problems Brother No Known Problems Brother No Known Problems Brother No Known Problems Brother No Known Problems Brother No Known Problems Brother No Known Problems Brother Leukemia Paternal Grandmother 80 Heart disease Paternal Grandfather 60 SOCIAL HISTORY Social History Tobacco Use Smoking status: Never Smokeless tobacco: Never Vaping Use Vaping status: Never Used Substance Use Topics Alcohol use: Not Currently Comment: 1-2 every 3 months. Drug use: Never REVIEW OF SYSTEMS Abdomen: No abdominal pain, nausea, vomiting, diarrhea, or constipation. No bloating, early satiety, indigestion, or increased flatulence. Bladder: No dysuria, gross hematuria, urinary frequency, urinary urgency, or incontinence. Breast: No breast lumps, nipple d/c, overlying skin changes, redness or skin retraction. Allergies and current medication updated:Yes SENSITIVE EXAM: The sensitive examination was discussed with the Patient or Patient's Authorized Wire Brusher. As applicable, any other physician, advance practice provider, medical student, or other health professional student that will be observing or involved in the sensitive examination for educational or training purposes was discussed with the Patient or Authorized Wire Brusher. The Patient or Authorized Wire Brusher has agreed to proceed with the sensitive examination. (Sensitive examination includes inspection and/or palpation of the breasts, pelvis, prostate and anorectal regions). EXAM: BP 120/80 Ht 5' 2 (1.58m) Wt 208 lb (94.3kg) LMP 07/12/2024 BMI 38.03 kg/(m2). GENERAL: pleasant, female in no apparent distress BREAST: soft, non-tender, symmetric, no dominant mass, normal nipple-areolar complex, no lymphadenopathy, and no nipple discharge CHEST: Normal inspiratory effort ABDOMEN: soft, non-tender, and no masses PELVIC: external genitalia normal, normal Bartholin's glands, urethra, Sparkman's glands, no vulvar lesions, no cervical lesions, good vaginal support, physiologic discharge present, normal appearing perineal body and perianal region BIMANUAL: uterus normal size, shape and consistency, no adnexal masses, and non-tender RECTOVAGINAL: deferred. NEURO: alert and oriented x3,exam grossly non-focal EXTREMITIES: normal ASSESSMENT/PLAN: 1) Health maintenance: Pap done with HPV - h/o abnormal. Mammogram starting age 40. Nutrition, exercise and routine health maintenance exams reviewed. Calcium/Vitamin D supplementation information provided. 2) Contraception: tubal sterilization. Contraceptive options reviewed and information provided. 3) Follow up one year or sooner as needed Wisam Echols MD Allergies As of Date: 08/04/2024 (No Known Allergies) Date Reviewed: 08/04/2024 Reviewed by: Wisam Echols MD - Fully Assessed Reason for Visit: Well Woman [1463] Primary Visit Diagnosis:Encounter for gynecological examination (general) (routine) without abnormal findings [Z01.419] Other Visit Diagnoses:Screening for cervical cancer [Z12.4] Encounter for screening for human papillomavirus (HPV) [Z11.51] Order(s):PAP TEST [LA (more content not included)... Normal [facility] HIGH RISK HUMAN PAPILLOMA SATNAM (HPV), PCR FOR DETECTION AND GENOTYPINGon 08-04-2024 HPV 16 Ag Ql (Unsp spec) Detected Abnormal Not detected [facility] Comment on above: Order Comment: Speci men Type: FLUID SPECIMENOrdering Facility: [facility] Address: [address] [place] [address] Performed By: #### H PVHRT ####[facility] LABCLIA [id number] [place] [address] [place] HPV 18 Ag Ql (Unsp spec) Not detected Normal Not detected [facility] Comment on above: Order Comment: Speci men Type: FLUID SPECIMENOrdering Facility: [facility] Address: [address] [place] [address] Performed By: #### H PVHRT ####[facility] LABIA [id number] [place] [address] [place] HPV 31+33+35+39+45+51+52 +56+58+59+66+68 DNA KAITLYN+probe Ql (Cvx) Not detected Normal Not detected [facility] Comment on above: Order Comment: Speci men Type: FLUID SPECIMENOrdering Facility: [facility] Address: [address] [place] [address] Result Comment: High Risk HPV Other Type includes HPV types 31, 33, 35, 39, 45, 51, 52, 56, 58, 59, 66 and 68. Performed By: #### H PVHRT ####[facility] LABIA [id number] [place] [address] [place] PAP TESTon 08-04-2024 ADEQUACY Normal [facility] Comment on above: Order Comment: Speci men Type: FLUID SPECIMENOrdering Facility: [facility] Address: [address] [place] [address] Result Comment: Sati sfactory for interpretation. Transformation zone present Performed By: #### L [id number] ####[facility] LABIA [id number] [place] [address] [place] CASE REPORT Normal [facility] Comment on above: Order Comment: Speci men Type: FLUID SPECIMENOrdering Facility: [facility] Address: [address] [place] [address] Result Comment: Gyne cologic Cytology Report Case: [id number] Authorizing Provider: Wisam Echols MD Collected: 08/04/2024 04:14 PM Ordering Location: OB/Gynecology Received: 08/04/2024 04:27 PM First Screen: Gmitro, Sebastien, CT, ASCP Pathologist: Marvin Mueller MD Specimen: Pap Test, ThinPrep, Cervix Performed By: #### L [id number] ####[facility] LABCLIA [id number] [address] [address] [place] CLINICAL HISTORY, CYTOLOGY, VEHICLE LEASING AND RENTAL MANAGER Routine Exam Normal [facility] Comment on above: Order Comment: Speci men Type: FLUID SPECIMENOrdering Facility: [facility] Address: [address] [place] [address] Performed By: #### L [id number] ####[facility] LABCLIA [id number] [address] [address] [place] FINAL PERFORMING LAB Normal [facility] Comment on above: Order Comment: Speci men Type: FLUID SPECIMENOrdering Facility: [facility] Address: [address] [place] [address] Result Comment: Tech nical component, marketing director screening performed at [facility], [address] [place], [place] [id number] CLIA# [id number] Diagnostic interpretation performed at [facility], [address] [place], [place] [id number] CLIA# [id number] Damage Inside Adjuster: Trever Mckeon M.D. Performed By: #### L [id number] ####[facility] LABCLIA [id number] [address] [address] [place] INTERPRETATION, CYTOLOGY, VEHICLE LEASING AND RENTAL MANAGER Abnormal [facility] Comment on above: Order Comment: Speci men Type: FLUID SPECIMENOrdering Facility: [facility] Address: [address] [place] [address] Result Comment: Atyp ical squamous cells of undetermined significance (ASC-US). Atypical glandular cells, endocervical type. at 1411 EDT Performed By: #### L [id number] ####[facility] LABCLIA [id number] [address] [place] [address] [place] LMP 07/12/2024 Normal [facility] Comment on above: Order Comment: Speci men Type: FLUID SPECIMENOrdering Facility: [facility] Address: [address] [place] [address] Performed By: #### L [id number] ####[facility] LABCLIA [id number] [facility] [address] [place] [address] [place] PAP DISCLAIMER COMMENT The Pap Smear is a screening test for cervical cancer. False negative results occur with all screening tests, emphasizing the need for rescreening at recommended intervals, and clinical correlation. Normal [facility] Comment on above: Order Comment: Speci men Type: FLUID SPECIMENOrdering Facility: [facility] Address: [address] [place] [address] Performed By: #### L [id number] ####[facility] LABCLIA [id number] [address] [place] [address] [place] PAP GENERAL CATEGORIZATION Epithelial Cell Abnormality Normal [facility] Comment on above: Order Comment: Speci men Type: FLUID SPECIMENOrdering Facility: [facility] Address: [address] [place] [address] Performed By: #### L [id number] ####[facility] LABCLIA [id number] [facility] [address] [place] [address] [place] PAP NEWSPAPER MANAGING EDITOR COMMENT This specimen has be en analyzed by the ThinPrep Imaging System, an automated imaging and review system, which assists the laboratory in evaluating cells on ThinPrep Pap tests. Following automated imaging, selected piedra from every slide are reviewed by a marketing director. Normal [facility] Comment on above: Order Comment: Speci men Type: FLUID SPECIMENOrdering Facility: [facility] Address: [address] [place] [address] Performed By: #### L [id number] ####[facility] LABCLIA [id number] [facility] [address] [address] [facility] CNNURSEon 02-24-2024 CNNURSE Nurse Visit (OBGYWM) JANELLE YAN ([id number]) 1985 F Date Time Provider Department 02/24/24 9:00 AM [facility] During your visit today, we recorded the following information about you: Blood pressure Weight Last Period 122/78 98.4 kg 02/12/24 Annalee Key, FRAN 02/24/2024 9:10 AM Signed Patient identified by name and date of . Janelle Yan is here for her HPV Gardasil vaccination, injection # three of the series. Patient ?No Gardasil injection was given without incident. See immunizations for details of immunizations administered today. VIS sheet provided: Yes Patient advised to follow up in Series completed Provider Sierra Quinn CNM was present in office at time of injection. FRAN Paige Jennifer, FRAN 02/24/2024 9:01 AM Signed Gardasil Gardasil is a vaccine to protect against Human Papillomavirus (HPV) types 6, 11, 16, 18, 31,33,45, 52, 58. These viruses cause cancer and precancerous lesions on the cervix (opening between vagina and uterus), in the vagina and on the vulva (skin around the outside of the vagina) as well as genital warts. The vaccine cannot cause these diseases and cannot treat them if already present. Gardasil works best if given before contact with HPV. Most people are exposed to HPV soon after starting sexual activity. The vaccine is recommended between the ages of 9 and 45. Gardasil does not protect against all strains of HPV. Women who receive the vaccine still need to have regular pelvic exams and cervical cancer screening with the pap smear. You should ask your doctor if Gardasil is right for you if you have a weakened immune system, a bleeding disorder, plan to become soon or have a current illness causing fever. Gardasil is not recommended for women. You should be sure your doctor is aware of any allergies you have and all medications and herbal supplements you take. Gardasil is given to those ages 9-14 in 2 doses at 0 and 8 months. In ages 15-45, three injections are given at 0,2,6 months. Common side effects include pain, redness, itching and swelling at the injection site, nausea, fever, dizziness and fainting. Rare but potentially serious reactions have been reported. These include allergic reaction, swollen glands, joint and muscle pain, weakness and Guillain-Cumberland syndrome. Referring Provider: WISAM ECHOLS [[id number]] Allergies As of Date: 02/24/2024 (No Known Allergies) Date Reviewed: 02/24/2024 Reviewed by: Annalee Key RN - Fully Assessed Reason for Visit: Gardasil Injection [1654] Primary Visit Diagnosis:Need for prophylactic vaccination/inoculatio n against viral disease [Z23] Prescriptions as of 02/24/2024 - multivitamin tablet Take 1 tablet by mouth once daily. Problem List As Of Date 02/24/2024 Noted Resolved Obesity, Class II, BMI 35-39.9 [E66.9] 11/02/2022 Other instructions from your clinician: Gardasil Gardasil is a vaccine to protect against Human Papillomavirus (HPV) types 6, 11, 16, 18, 31,33,45, 52, 58. These viruses cause cancer and precancerous lesions on the cervix (opening between vagina and uterus), in the vagina and on the vulva (skin around the outside of the vagina) as well as genital warts. The vaccine cannot cause these diseases and cannot treat them if already present. Gardasil works best if given before contact with HPV. Most people are exposed to HPV soon after starting sexual activity. The vaccine is recommended between the ages of 9 and 45. Gardasil does not protect against all strains of HPV. Women who receive the vaccine still need to have regular pelvic exams and cervical cancer screening with the pap smear. You should ask your doctor if Gardasil is right for you if you have a weakened immune system, a bleeding disorder, plan to become soon or have a current illness causing fever. Gardasil is not recommended for women. You should be sure your doctor is aware of any allergies you have and all medications and herbal supplements you take. Gardasil is given to those ages 9-14 in 2 doses at 0 and 8 months. In ages 15-45, three injections are given at 0,2,6 months. Common side effects include pain, redness, itching and swelling at the injection site, nausea, fever, dizziness and fainting. Rare but potentially serious reactions have been reported. These include allergic reaction, swollen glands, joint and muscle pain, weakness and Guillain-Cumberland syndrome. Encounter Status:Closed by ANNALEE KEY on 02/24/24 Normal [facility] UA DIP,URINE HCG (POC)on Beta HCG ( test) Ql (U) Negative Negative [facility] Comment on above: Location:[facility], [address], [place], [address] Glass Embosser (POCT) Internal QC [facility] Location:[facility], [address], [place], [address] [facility] POINT OF CARE [facility] Vital Signs Date Time Vital Sign Value Performing Clinician Faci rejiy 11-02-2024 10:39-0400 Body height 157.5 cm Allan Franco MD Work Phone: [facility] 11-02-2024 10:39-0400 Body mass index (BMI) [Ratio] 38.48 kg/m2 Allan Franco MD Work Phone: [facility] 11-02-2024 10:39-0400 Body weight 95.44 kg Allan Franco MD Work Phone: [facility] 11-02-2024 10:39-0400 Diastolic blood pressure 70 mm[Hg] Allan Franco MD Work Phone: [facility] 11-02-2024 10:39-0400 Heart rate 78 /min Allan Franco MD Work Phone: [facility] 11-02-2024 10:39-0400 Respiratory rate 16 /min Allan Franco MD Work Phone: [facility] 11-02-2024 10:39-0400 Systolic blood pressure 104 mm[Hg] Allan Franco MD Work Phone: [facility] 09-15-2024 10:10-0400 Body mass index (BMI) [Ratio] 38.78 kg/m2 Wisam Echols MD Work Phone: [facility] 09-15-2024 10:10-0400 Body weight 96.16 kg Wisam Echols MD Work Phone: [facility] 09-15-2024 10:10-0400 Diastolic blood pressure 80 mm[Hg] Wisam Echols MD Work Phone: [facility] 09-15-2024 10:10-0400 Systolic blood pressure 138 mm[Hg] Wisam Echols MD Work Phone: [facility] 09-08-2024 08:58-0400 Diastolic blood pressure 82 mm[Hg] Nolberto Gannon MD Work Phone: [facility] 09-08-2024 08:58-0400 Heart rate 70 /min Nolberto Gannon MD Work Phone: [facility] 09-08-2024 08:58-0400 Systolic blood pressure 123 mm[Hg] Nolberto Gannon MD Work Phone: [facility] 09-08-2024 08:53-0400 Body mass index (BMI) [Ratio] 38.71 kg/m2 Nolberto Gannon MD Work Phone: [facility] 09-08-2024 08:53-0400 Body weight 96 kg Nolberto Gannon MD Work Phone: [facility] 08-18-2024 09:04-0400 Body mass index (BMI) [Ratio] 38.34 kg/m2 Wisam Echols MD Work Phone: [facility] 08-18-2024 09:04-0400 Body weight 95.07 kg Wisam Echols MD Work Phone: [facility] 08-18-2024 09:04-0400 Diastolic blood pressure 78 mm[Hg] Wisam Echols MD Work Phone: [facility] 08-18-2024 09:04-0400 Systolic blood pressure 118 mm[Hg] Wisam Echols MD Work Phone: [facility] 08-04-2024 15:50-0400 Body height 157.5 cm Wisam Echols MD Work Phone: [facility] 08-04-2024 15:50-0400 Body mass index (BMI) [Ratio] 38.04 kg/m2 Wisam Echols MD Work Phone: [facility] 08-04-2024 15:50-0400 Body weight 94.35 kg Wisam Echols MD Work Phone: [facility] 08-04-2024 15:50-0400 Diastolic blood pressure 80 mm[Hg] Wisam Echols MD Work Phone: [facility] 08-04-2024 15:50-0400 Systolic blood pressure 120 mm[Hg] Wisam Echols MD Work Phone: [facility] 02-24-2024 09:02-0400 Body mass index (BMI) [Ratio] 39.69 kg/m2 Nurse Wstr Work Phone: [facility] 02-24-2024 09:02-0400 Body weight 98.43 kg Nurse Wstr Work Phone: [facility] 02-24-2024 09:02-0400 Diastolic blood pressure 78 mm[Hg] Nurse Wstr Work Phone: [facility] 02-24-2024 09:02-0400 Systolic blood pressure 122 mm[Hg] Nurse Wstr Work Phone: [facility] 09-19-2023 09:10-0400 Body mass index (BMI) [Ratio] 40.6 kg/m2 Wisam Echols MD Work Phone: [facility] 09-19-2023 09:10-0400 Body weight 100.7 kg Wisam Echols MD Work Phone: [facility] 09-19-2023 09:10-0400 Diastolic blood pressure 72 mm[Hg] Wisam Echols MD Work Phone: [facility] 09-19-2023 09:10-0400 Systolic blood pressure 112 mm[Hg] Wisam Echols MD Work Phone: [facility] 08-15-2023 09:11-0400 Body weight 102.24 kg Nurse Wstr Work Phone: [facility] 08-15-2023 09:11-0400 Diastolic blood pressure 80 mm[Hg] Nurse Wstr Work Phone: [facility] 08-15-2023 09:11-0400 Systolic blood pressure 114 mm[Hg] Nurse Wstr Work Phone: [facility] 07-26-2023 08:35-0500 Body height 157.5 cm Wisam Echols MD Work Phone: [facility] 07-26-2023 08:35-0500 Body weight 100.06 kg Wisam Echols MD Work Phone: [facility] 07-26-2023 08:35-0500 Diastolic blood pressure 68 mm[Hg] Wisam Echols MD Work Phone: [facility] 07-26-2023 08:35-0500 Heart rate 60 /min Wisam Echols MD Work Phone: [facility] 07-26-2023 08:35-0500 Respiratory rate 12 /min Wisam Echols MD Work Phone: [facility] 07-26-2023 08:35-0500 SaO2% (BldA) [Mass fraction] 97 % Wisam Echols MD Work Phone: [facility] 07-26-2023 08:35-0500 Systolic blood pressure 100 mm[Hg] Wisam Echols MD Work Phone: [facility] Encounters Encounter Date Encounter Type Care Provider Facility Start: 11-20-2024 ambulatory Nolberto Tyson ty:[facility] Start: 11-18-2024 Encounter for other preprocedural examination Allan Franco [facility] Start: 11-02-2024 End: 11-02-2024 Patient encounter procedure Allan Franco MD Work Phone: OB/Gynecology Comment on above: Endometrial polyp (P rimary Dx); Visit for pre-operative examination; Dysmenorrhea Start: 11-02-2024 End: 11-02-2024 Preprocedural examination done Allan Franco MD Work Phone: [facility] Work Phone: Start: 11-02-2024 End: 11-02-2024 ambulatory ALLAN FRANCO Facility:[facility] Start: 10-01-2024 End: 10-01-2024 Telephone encounter Wisam Echols MD Work Phone: OB/Gynecology Comment on above: Results Start: 09-29-2024 End: 09-29-2024 Patient encounter procedure Us Tech [facility] OB/Gynecology Start: 09-29-2024 End: 09-29-2024 ambulatory Table Operator [facility] [employer] Work Phone: OB/Gynecology Start: 09-18-2024 End: 11-18-2024 Follow-up encounter Wisam Echols MD Work Phone: OB/Gynecology Start: 09-15-2024 End: 09-15-2024 Patient encounter procedure Wisam Echols MD Work Phone: OB/Gynecology Comment on above: Atypical glandular c ells of undetermined significance (MIESHA) on cervical Pap smear (Primary Dx) Start: 09-15-2024 End: 09-15-2024 ambulatory WISAM ECHOLS Facility:[facility] Start: 09-08-2024 End: 09-08-2024 ambulatory NOLBERTO GANNON Facility:[facility] Start: 09-08-2024 End: 09-08-2024 Patient encounter procedure Nolberto Gannon MD Work Phone: Internal [facility] [place] Comment on above: Dizziness (Primary D x); Family history of hypertrophic cardiomyopathy; Screening for depression; Encounter for screening examination for other mental health and behavioral disorders Start: 08-21-2024 End: 08-21-2024 ambulatory [facility] Provider OB/Gynecology Comment on above: results Start: 08-21-2024 End: 08-21-2024 E-mail encounter from caregiver [facility] Provider OB/Gynecology Start: 08-21-2024 End: 10-21-2024 Follow-up encounter Wisam Echols MD Work Phone: OB/Gynecology Start: 08-18-2024 End: 08-18-2024 ambulatory WISAM ECHOLS Facility:[facility] Start: 08-18-2024 End: 08-18-2024 Patient encounter procedure Wisam Echols MD Work Phone: OB/Gynecology Comment on above: ASCUS with positive high risk HPV cervical (Primary Dx) Start: 08-04-2024 End: 08-04-2024 Patient encounter procedure Wisam Echols MD Work Phone: OB/Gynecology Comment on above: Encounter for gyneco logical examination (general) (routine) without abnormal findings (Primary Dx); Screening for cervical cancer; Encounter for screening for human papillomavirus (HPV) Start: 08-04-2024 End: 08-04-2024 Patient encounter status Wisam Echols MD Work Phone: [facility] Start: 08-04-2024 End: 08-04-2024 ambulatory WISAM ECHOLS Facility:[facility] Start: 08-04-2024 Encounter for gynecological examination (general) (routine) without abnormal findings WISAM ECHOLS [facility] Start: 02-24-2024 End: 02-24-2024 ambulatory WISAM ECHOLS Facility:[facility] Start: 02-24-2024 End: 02-24-2024 Nursing evaluation of patient and report Nurse [employer] Services Manager [facility] Work Phone: OB/Gynecology Comment on above: Need for prophylacti c vaccination/inoculation against viral disease (Primary Dx) Start: 10-17-2023 End: 10-17-2023 Nursing evaluation of patient and report Nurse [employer] R[employer] Services Manager [facility] Work Phone: OB/Gynecology Comment on above: Need for prophylacti c vaccination/inoculation against viral disease (Primary Dx) Start: 09-24-2023 Telephone encounter Wisam cardoso MD Work Phone: OB/Gynecology Comment on above: Results Start: 09-19-2023 End: 09-19-2023 Patient encounter procedure Wisam Echols MD Work Phone: OB/Gynecology Comment on above: Cervical high risk h uman papillomavirus (HPV) DNA test positive (Primary Dx) Start: 09-05-2023 Telephone encounter Wisam cardoso MD Work Phone: OB/Gynecology Comment on above: Results (HPV) Start: 08-15-2023 End: 08-15-2023 Nursing evaluation of patient and report Nurse [employer] Services Manager [facility] Work Phone: OB/Gynecology Comment on above: Need for prophylacti c vaccination/inoculation against viral disease (Primary Dx) Start: 08-08-2023 Telephone encounter Wisam cardoso MD Work Phone: OB/Gynecology Comment on above: Results Start: 07-26-2023 End: 07-26-2023 Patient encounter procedure Wisam Echols MD Work Phone: OB/Gynecology Comment on above: Encounter for gyneco logical examination (general) (routine) without abnormal findings (Primary Dx); Screening for cervical cancer; Encounter for screening for human papillomavirus (HPV) Start: 07-26-2023 End: 07-26-2023 Patient encounter status Wisam Echols MD Work Phone: [facility] Start: 11-02-2022 End: 11-02-2022 Patient encounter procedure Nolberto Gannon MD Work Phone: Internal Medicine [place] Comment on above: Routine medical exam (Primary Dx); Migraine with aura and without status migrainosus, not intractable; Screening for HIV without presence of risk factors; Encounter for hepatitis C screening test for low risk patient; Encounter for screening for lipid disorder; Obesity, Class II, BMI 35-39.9 Start: 11-02-2022 End: 11-02-2022 Patient encounter status Nolberto Gannon MD Work Phone: Internal Medicine [place] Procedures Date Procedure Procedure Detail Performing Clinician Start: 09-29-2024 Us pelvic nonobstetr ic real-time image complete Wisam Echols MD Work Phone: Start: 09-15-2024 SURGICAL PATHOLOGY Peg Echols MD Work Phone: Start: 09-15-2024 UA DIP,URINE HCG (POC) Wisam Echols MD Work Phone: Start: 09-08-2024 Ecg routine ecg w/le ast 12 lds i&r only [facility] Provider Start: 09-08-2024 Adult depression scr eening assessment Nolberto Gannon MD Work Phone: Start: 08-18-2024 UA DIP,URINE HCG (POC) Wisam Echols MD Work Phone: Start: 09-19-2023 UA DIP,URINE HCG (POC) Wisam Echols MD Work Phone: Plan of Treatment Date Care Activity Detail Author Start: 01-19-2029 Urine microalbumin profile [facility] Start: 07-25-2028 Screening for malign ant neoplasm of cervix [facility] Start: 09-08-2025 Anxiety Screening Anxiety Screening [facility] Start: 09-08-2025 Covid-19 Vaccine () Covid-19 Vaccine () [facility] Comment on above: Postponed from 01/25 (Declined at this time) Start: 09-08-2025 Depression Screening Depression Scre ening [facility] Start: 08-04-2025 Screening for malign ant neoplasm of cervix Cervical Cancer Screening [facility] Start: 12-14-2024 End: 12-14-2024 Patient encounter procedure 12/14/2024 9:20 AM EDT Office Visit OB/Gynecology [address] [place] [id number] Allan Franco MD [address] [place] [id number] POST OP OB/Gynecology Comment on above: POST OP Start: 11-02-2024 End: 11-02-2024 Patient encounter procedure 11/02/2024 10:50 AM EDT Office Visit OB/Gynecology [address] [place] [id number] Allan Franco MD [address] [place] [id number] Pre Op, surgery 11/20 at [facility] OB/Gynecology Comment on above: Pre Op, surgery 11/20 at [facility] Start: 09-15-2024 End: 09-15-2024 Patient encounter procedure 09/15/2024 10:10 AM EDT Office Visit OB/Gynecology [address] [place] [address] Wisam Echols MD [address] [place] [address] [facility] OB/Gynecology Comment on above: [facility] Start: 07-30-2024 End: 07-30-2024 Patient encounter procedure 07/30/2024 9:20 AM EST Office Visit OB/Gynecology [address] [place] [address] Wisam Echols MD [address] [place] [address] annual OB/Gynecology Comment on above: annual Start: 07-25-2024 Screening for malign ant neoplasm of cervix Cervical Cancer Screening [facility] Start: 02-20-2024 End: 02-20-2024 Nursing evaluation of patient and report 02/20/2024 9:00 AM EDT Nurse Visit OB/Gynecology [address] [place] [address] Wstr, Nurse [employer] [facility] [address] [place] [address] HPV OB/Gynecology Comment on above: HPV Start: 02-15-2024 HPV Vaccine (3 - 3-d ose SCDM series) HPV Vaccine (3 - 3-dose SCDM series) [facility] Start: 02-04-2024 9vhpv vacc 2/3 dose sched im use HPV VACCINE, 9-VALENT (GARDASIL 9) Immunization/Injection Routine Expected: 02/04/2024 (Approximate) [facility] Work Phone: Comment on above: Expected: 02/04/2024 (Approximate) Start: 09-01-2024 Covid-19 Vaccine ( season) Covid-19 Vaccine ( season) [facility] Start: 01-26-2024 Influenza vaccination Influenza Vacc ine (#1) [facility] Start: 10-17-2023 End: 10-17-2023 Nursing evaluation of patient and report 10/17/2023 10:00 AM EDT Nurse [facility] [address] [facility] [place], [place] [id number] Wstr, Nurse [employer] Services Manager [facility] [address] [place], [place] [address] HPV OB/Gynecology Comment on above: HPV Start: 10-07-2023 9vhpv vacc 2/3 dose sched im use HPV VACCINE, 9-VALENT (GARDASIL 9) Immunization/Injection Routine Expected: 10/07/2023 (Approximate) [facility] Work Phone: Comment on above: Expected: 10/07/2023 (Approximate) Start: 09-12-2023 HPV Vaccine (2 - 3-d ose SCDM series) HPV Vaccine (2 - 3-dose SCDM series) [facility] Start: 05-27-2023 Behavioral Health Screening Behavioral Health Screening [facility] Start: 05-27-2023 Depression Assessment Depression Ass essment [facility] Start: 01-25-2023 Covid-19 Vaccine ( season) Covid-19 Vaccine ( season) [facility] Start: 11-09-2022 HEPATITIS B (2 of 2 - CpG 2-dose series) HEPATITIS B (2 of 2 - CpG 2-dose series) [facility] Start: 11-03-2022 End: 01-03-2023 Hepatitis C virus Ab [Presence] in Serum [facility] Work Phone: Comment on above: Expected: 11/03/2022 , Expires: 01/03/2023 Start: 11-03-2022 End: 01-03-2023 HIV 1+2 Ab [Presence] in Serum or Plasma by Immunoassay [facility] Work Phone: Comment on above: Expected: 11/03/2022 , Expires: 01/03/2023 Start: 11-03-2022 End: 01-03-2023 Lipid 1996 panel - Serum or Plasma [facility] Work Phone: Comment on above: Expected: 11/03/2022 , Expires: 01/03/2023 Start: 11-03-2022 End: 01-03-2023 Thyrotropin [Units/volume] in Serum or Plasma [facility] Work Phone: Comment on above: Expected: 11/03/2022 , Expires: 01/03/2023 Start: 04-04-2021 COVID-19 VACCINE (3 - Booster for Pfizer series) COVID-19 VACCINE (3 - Booster for Pfizer series) [facility] Start: 03-23-2020 HPV TESTING HPV TESTING [facility] Start: 03-23-2020 PAP TESTING PAP TESTING [facility] Start: 03-23-2020 Screening for malign ant neoplasm of cervix [facility] Start: 02-20-2004 Anxiety Screening Anxiety Screening [facility] Start: 02-20-2004 Depression Screening Depression Scre ening [facility] Start: 02-20-2004 HEPATITIS C SCREENING HEPATITIS C SC REENING [facility] Start: 02-20-2004 HIV SCREENING HIV SCREENING [facility] 9vhpv vacc 2/3 dose sched im use HPV VACCINE, 9-VALENT (GARDASIL 9) Immunization/Injection Routine Ordered: 08/08/2023 [facility] Work Phone: Comment on above: Ordered: 08/08/2023 COLPOSCOPY COLPOSCOPY Proce dures Routine ASCUS with positive high risk HPV cervical Ordered: 08/18/2024 [facility] Work Phone: Comment on above: Ordered: 08/18/2024 End: 09-08-2025 ECG COMPLETE ECG COMPLETE ECG Routine Dizziness Family history of hypertrophic cardiomyopathy 1 Occurrences starting 09/08/2024 until 09/08/2025 [facility] Work Phone: Comment on above: 1 Occurrences starti ng 09/08/2024 until 09/08/2025 ECG COMPLETE ECG COMPLETE ECG 09/08/2024 9:49 AM EDT [facility] Endometrial bx w/wo endocervix bx w/o dilat spx ENDOMETRIAL BIOPSY Procedures Routine Atypical glandular cells of undetermined significance (MIESHA) on cervical Pap smear Ordered: 08/21/2024 [facility] Work Phone: Comment on above: Ordered: 08/21/2024 Endometrial bx w/wo endocervix bx w/o dilat spx ENDOMETRIAL BIOPSY Procedures Routine Atypical glandular cells of undetermined significance (MIESHA) on cervical Pap smear Ordered: 09/15/2024 [facility] Work Phone: Comment on above: Ordered: 09/15/2024 PAP TEST PAP TEST Lab Rou [facility] Encounter for gynecological examination (general) (routine) without abnormal findings Screening for cervical cancer Encounter for screening for human papillomavirus (HPV) 07/26/2023 9:07 AM EST [facility] Work Phone: PAP TEST PAP TEST Lab Rou [facility] Encounter for gynecological examination (general) (routine) without abnormal findings Screening for cervical cancer Encounter for screening for human papillomavirus (HPV) 08/04/2024 4:14 PM EDT [facility] Work Phone: SURGICAL PATHOLOGY SURGICAL PATH OLOGY Lab Routine Cervical high risk human papillomavirus (HPV) DNA test positive 09/19/2023 10:46 AM EDT [facility] Work Phone: Tissue Pathology bio psy report SURGICAL PATHOLOGY Lab Routine ASCUS with positive high risk HPV cervical 08/18/2024 9:29 AM EDT [facility] Immunizations Immunization Date Immunization Notes Care Provider Gladys roman 02-24-2024 Human Papillomavirus 9-valent vaccine Nurse Wstr Work Phone: [facility] 10-17-2023 Human Papillomavirus 9-valent vaccine Nurse Wstr Work Phone: [facility] 08-15-2023 Human Papillomavirus 9-valent vaccine Nurse Wstr Work Phone: [facility] 03-08-2023 influenza virus vacc ine, unspecified formulation Nurse Wstr Work Phone: [facility] 10-12-2022 Hepatitis B vaccine (recombinant), CpG adjuvanted Nolberto Gannon MD Work Phone: [facility] Work Phone: 10-12-2022 hepatitis B vaccine, unspecified formulation Nolberto Gannon MD Work Phone: [facility] 04-05-2022 influenza, injectabl e, quadrivalent, preservative free Nolberto Gannon MD Work Phone: [facility] Work Phone: 02-23-2019 Influenza, injectabl e, Madin Ela Canine Kidney, preservative free, quadrivalent Nolberto Gannon MD Work Phone: [facility] Work Phone: 01-19-2019 measles, mumps and rubella virus vaccine Nolberto Gannon MD Work Phone: [facility] Work Phone: 01-19-2019 tetanus toxoid, redu teresa diphtheria toxoid, and acellular pertussis vaccine, adsorbed Nolberto Gannon MD Work Phone: [facility] Work Phone: 12-10-2003 hepatitis A vaccine, unspecified formulation Nolberto Gannon MD Work Phone: [facility] Work Phone: 11-30-2003 TD(adult) unspecifie d formulation Nolberto Gannon MD Work Phone: [facility] Work Phone: 11-03-1987 measles, mumps and rubella virus vaccine Nolberto Gannon MD Work Phone: [facility] Work Phone: Payers Date Payer Category Payer Self-pay [id number] 2024 Unknown [id number] 2022 Private Health Insurance [id number] Unknown YANCY [id number] Unknown [id number] Social History Date Type Detail Facility Tobacco smoking stat us NHIS Unknown if ever smoked [facility] Work Phone: Start: 1985 Sex Assigned At Female [facility] Start: 08-06-2022 Tobacco smoking status NHIS Never smoked tobacco [facility] Start: 08-06-2022 Tobacco use and exposure Smokeless tobacco non-user [facility] Start: 11-03-2022 Alcohol intake Current drinker of alcohol (finding) [facility] Start: 11-01-2022 History SDOH Alcohol Frequency 2 [facility] Start: 11-01-2022 History SDOH Alcohol Std Drinks 1 [facility] Start: 11-01-2022 History SDOH Social Connections Phone 3 [facility] Start: 11-01-2022 History SDOH Social Connections Living 5 [facility] Start: 11-01-2022 History SDOH Financial 4 [facility] Start: 11-02-2022 Alcohol Comment 1-2 every 3 months. [facility] Start: 07-26-2023 End: 09-15-2024 Alcohol intake Ex-drinker (finding) [facility] Start: 11-01-2022 End: 09-08-2024 History of Social function [facility] Start: 11-01-2022 End: 09-08-2024 Social connection and isolation panel [facility] Do you belong to any clubs or organizations such as restoration groups, unions, fraternal or athletic groups, or school groups? No [facility] Attends Club or Organization Meetings Not on file [facility] Work Phone: Are you now , , , , never or living with a partner? [facility] How often to you hav e a drink containing alcohol? Monthly or less [facility] How many standard dr inks containing alcohol do you have on a typical day? 1 or 2 [facility] How often do you hav e 6 or more drinks on 1 occasion? Never [facility] How hard is it for y ou to pay for the very basics like food, housing, medical care, and heating Not very hard [facility] Do you feel stress - tense, restless, nervous, or anxious, or unable to sleep at night because your mind is troubled all the time - these days [OSQ] To some extent [facility] (I/We) worried wheth er (my/our) food would run out before (I/we) got money to buy more. Never true [facility] Start: 05-08-2022 Gender identity Identifies as female gender (finding) [facility] Start: 05-08-2022 Sexual orientation Heterosexual (finding) [facility] Clinical Notes 11-02-2022 to 11-02-2024 Allan Franco MD - 11/02/2024 11:25 AM Allan Burt MD - 11/02/2024 11:25 AM EDTTelephone Encounter - Allegra Nevarez RN - 10/01/2024 4:48 PM Wisam Childress MD - 09/15/2024 10:04 AM EDT Note Date & Type Note Facility 11-02-2024 History and physical note DATE OF SERVICE: November 02, 2024 PROBLEM: endometrial polyp DIAGNOSIS: endometrial polyp PAST SURGICAL HISTORY: PAST SURGICAL HISTORY Procedure Laterality Date DELIVERY ONLY 2011 , low transverse x 3, PAST MEDICAL HISTORY: PAST MEDICAL HISTORY Diagnosis Date NEGATIVE MEDICAL HISTORY SUBJECTIVE: First day of menses heavy. Dysmenorrhea with periods. Regular menstrual cycles SOCIAL HISTORY: Social History Tobacco Use Smoking status: Never Smokeless tobacco: Never Vaping Use Vaping status: Never Used Substance Use Topics Alcohol use: Not Currently Comment: 1-2 every 3 months. Drug use: Never ALLERGIES No Known Allergies Current Outpatient Medications on File Prior to Visit Medication Sig meclizine (ANTIVERT) 12.5 mg tab Take 1 tablet by mouth every 6 hours as needed (for dizziness.). multivitamin tablet Take 1 tablet by mouth once daily. No current facility-administered medications on file prior to visit. EMB: Component FINAL DIAGNOSIS A. 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 SKIN: No lesions. CHEST: Clear to auscultation. No wheezes or rales. Good air exchange. HEART: Regular rate and rhythm No S3 or S4. No gallops or rubs. BACK: Nontender. ABDOMEN: Soft, non-tender, non-distended, no masses, no hepatosplenomegaly. LOWER EXTREMITIES: There was no pitting edema. ASSESSMENT: pre op PLAN: 1) Discussed r/b/a hysteroscopy, D&C, polypectomy, possible progesterone IUD insertion in detail. The rationale for the proposed surgery was discussed in addition to risks, benefits, and alternatives. General pre- and post-operative care was reviewed. Questions were answered. After discussion, the patient indicated a desire to proceed with the planned surgery. Allan Franco DO Medical Decision Making: Problems: Moderate: New problem with uncertain prognosis Risk: Moderate: Decision on minor surgery w/ risk factors Medical Decision Making Level: 4 - Moderate [facility] 11-02-2024 History and physical note DATE OF SERVICE: November 02, 2024 PROBLEM: endometrial polyp DIAGNOSIS: endometrial polyp PAST SURGICAL HISTORY: PAST SURGICAL HISTORY Procedure Laterality Date DELIVERY ONLY 2011 , low transverse x 3, PAST MEDICAL HISTORY: PAST MEDICAL HISTORY Diagnosis Date NEGATIVE MEDICAL HISTORY SUBJECTIVE: First day of menses heavy. Dysmenorrhea with periods. Regular menstrual cycles SOCIAL HISTORY: Social History Tobacco Use Smoking status: Never Smokeless tobacco: Never Vaping Use Vaping status: Never Used Substance Use Topics Alcohol use: Not Currently Comment: 1-2 every 3 months. Drug use: Never ALLERGIES No Known Allergies Current Outpatient Medications on File Prior to Visit Medication Sig meclizine (ANTIVERT) 12.5 mg tab Take 1 tablet by mouth every 6 hours as needed (for dizziness.). multivitamin tablet Take 1 tablet by mouth once daily. No current facility-administered medications on file prior to visit. EMB: Component FINAL DIAGNOSIS A. 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 SKIN: No lesions. CHEST: Clear to auscultation. No wheezes or rales. Good air exchange. HEART: Regular rate and rhythm No S3 or S4. No gallops or rubs. BACK: Nontender. ABDOMEN: Soft, non-tender, non-distended, no masses, no hepatosplenomegaly. LOWER EXTREMITIES: There was no pitting edema. ASSESSMENT: pre op PLAN: 1) Discussed r/b/a hysteroscopy, D&C, polypectomy, possible progesterone IUD insertion in detail. The rationale for the proposed surgery was discussed in addition to risks, benefits, and alternatives. General pre- and post-operative care was reviewed. Questions were answered. After discussion, the patient indicated a desire to proceed with the planned surgery. Allan Franco DO Medical Decision Making: Problems: Moderate: New problem with uncertain prognosis Risk: Moderate: Decision on minor surgery w/ risk factors Medical Decision Making Level: 4 - Moderate documented in this encounter [facility] 10-01-2024 Telephone encounter Note Surgery sheet given to Anne. Allegra Nevarez RN [facility] 10-01-2024 Miscellaneous Notes Surgery sheet given to Anne. Allegra Nevarez RN [place] [facility] [place]am Echols MD Patient notified. She is okay with proceeding with scheduling surgery. Doesn't care which surgeon, but does want [facility]. She does work a lot of weekends, so when Carlie calls her back may want to call with a few options too. Do you need a surgery sheet? Allegra Nevarez RN Left message for patient to call office. Lani Edmonds RN Wisam Echols MD to [facility] [employer] Pool 10/01/24 3:30 PM Result Note Recommend hysteroscopy with D&C and polypectomy for an endometrial polyp. If patient OK with that plan I carlos alberto refer her to one of my partners for the procedure. Wisam Echols MD [facility] documented in this encounter [facility] 10-01-2024 Telephone encounter Note Surgery sheet for SW completed Wisam Echols MD [facility] 10-01-2024 Telephone encounter Note Patient notified. She is okay with proceeding with scheduling surgery. Doesn't care which surgeon, but does want [facility]. She does work a lot of weekends, so when Carlie calls her back may want to call with a few options too. Do you need a surgery sheet? Allegra Nevarez RN [facility] 10-01-2024 Telephone encounter Note Left message for patient to call office. Lani Grey, RN [facility] 10-01-2024 Telephone encounter Note Wisam Echols MD to [facility] 10/01/24 3:30 PM Result Note Recommend hysteroscopy with D&C and polypectomy for an endometrial polyp. If patient OK with that plan I carlos alberto refer her to one of my partners for the procedure. Wisam Echols MD [facility] 09-30-2024 Note HNO ID: [id number] Author: MICHELLE GRIGGS MD Service: ? 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 Encounter Diagnosis ICD-10-CM 1. Endometrial polyp N84.0 Please see report under imaging tab. 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 Encounter Diagnosis ICD-10-CM 1. Endometrial polyp N84.0 Please see report under imaging tab. Michelle Griggs MD September 30, 2024 6:15 PM documented in this encounter [facility] 09-15-2024 Note HNO ID: [id number] Author: WISAM ECHOLS MD Service: ? Author Type: Physician Type: Progress Notes Filed: 09/15/2024 10:42 Note Text: Medical Laboratory Manager offered: Patient accepts, visit chaperoned by Malka Agustin MA. Janelle is a 39 year old Female who presents today for an endometrial biopsy for MIESHA pap. test: negative UNIVERSAL PROTOCOL / SAFETY CHECKLIST Procedure to be Performed: Endometrial Biopsy Sign In: A Moment of CARE was completed. Appropriate PPE (Personal Protective Equipment) worn by all providers involved with the procedure. Special equipment not required. Patient/Surrogate Stated/Verified: Patient name, Date of , Relevant allergies, and The intended procedure Time Out: Relevant labs, photos, and/or imaging studies have been reviewed. Intended patient and procedure match the source document(s) (e.g. consent, HANDP, associated studies [imaging, pathology]) match the intended patient and procedure. Consent obtained and matches the intended procedure. Yes. Correct side/site is not applicable. Medications required for this procedure are verified. are not applicable. Fire risk assessed and is not applicable. Implants: are not applicable. Sign Out: Specimens are all correctly labeled and sent. All instruments, equipment, possible retained foreign bodies are accounted for. Yes. The post-procedure plan of care has been communicated to the patient or surrogate. PROCEDURE: EXTERNAL GENITALIA: Normal in appearance without lesions VAGINA: Normal in appearance without lesions BIOPSY: Speculum placed into the vagina with excellent visualization of the cervix. Cervix cleaned with betadine. Anterior lip of cervix grasped with single toothed tenaculum. Uterus sounded to 8 cm. Pipelle inserted into the uterus without difficulty and endometrial biopsy obtained. Specimen labeled and sent to pathology. Hemostasis achieved. Procedure Summary: Patient tolerated procedure well. ASSESSMENT: MIESHA pap PLAN: Specimens labeled and sent to Pathology. Will notify patient of results in 1-2 weeks. Wisam Echols MD [facility] 09-15-2024 History of Presen t illness Narrative Medical Laboratory Manager offered: Patient accepts, visit chaperoned by Malka Agustin MA. Janelle is a 39 year old Female who presents today for an endometrial biopsy for MIESHA pap. test: negative UNIVERSAL PROTOCOL / SAFETY CHECKLIST Procedure to be Performed: Endometrial Biopsy Sign In: A Moment of CARE was completed. Appropriate PPE (Personal Protective Equipment) worn by all providers involved with the procedure. Special equipment not required. Patient/Surrogate Stated/Verified: Patient name, Date of , Relevant allergies, and The intended procedure Time Out: Relevant labs, photos, and/or imaging studies have been reviewed. Intended patient and procedure match the source document(s) (e.g. consent, H&P, associated studies [imaging, pathology]) match the intended patient and procedure. Consent obtained and matches the intended procedure. Yes. Correct side/site is not applicable. Medications required for this procedure are verified. are not applicable. Fire risk assessed and is not applicable. Implants: are not applicable. Sign Out: Specimens are all correctly labeled and sent. All instruments, equipment, possible retained foreign bodies are accounted for. Yes. The post-procedure plan of care has been communicated to the patient or surrogate. PROCEDURE: EXTERNAL GENITALIA: Normal in appearance without lesions VAGINA: Normal in appearance without lesions BIOPSY: Speculum placed into the vagina with excellent visualization of the cervix. Cervix cleaned with betadine. Anterior lip of cervix grasped with single toothed tenaculum. Uterus sounded to 8 cm. Pipelle inserted into the uterus without difficulty and endometrial biopsy obtained. Specimen labeled and sent to pathology. Hemostasis achieved. Procedure Summary: Patient tolerated procedure well. ASSESSMENT: MIESHA pap PLAN: Specimens labeled and sent to Pathology. Will notify patient of results in 1-2 weeks. Wisam Echols MD documented in this encounter [facility] 09-15-2024 Instructions Malka Agustin MA - 09/15/2024 10:04 AM EDT YOUR RECOVERY After your biopsy you may have: Vaginal bleeding (less than a normal menstrual period) Mild cramping Do NOT put anything in the vagina for 1 week after your endometrial biopsy. This includes: tampons douches and refraining from having sexual intercourse If you have any discomfort, you may take an over the counter pain medication (motrin, advil, ibuprofen, tylenol, etc). If this does not relieve your discomfort, contact the office. It is okay to wear a sanitary pad until the discharge and spotting stops. RISKS Although problems seldom occur with endometrial biopsies, there can be some complications. You may feel faint during and shortly after the procedure as well as have some bleeding after the procedure. There is also a risk of infection after the procedure. These complications are rare and can be easily treated. You should contact you doctor is you have any of the following: Heavy bleeding (more than your normal period) Bleeding with clots Severe abdominal pain Fever (more than 100.4F) Foul smelling vaginal discharge RESULTS We will have the results of your biopsy in 1-2 weeks. If you do not hear the results of your biopsy after 2 weeks, please contact the office for the results. If you have any additional questions or concerns please do not hesitate to contact the office. documented in this encounter [facility] 09-08-2024 Instructions Nolberto Gannon MD - 09/08/2024 9:54 AM EDT We discussed your recent episodes of dizziness and nausea: - These symptoms are consistent with vertigo. - I sent a prescription for Meclizine 12.5 mg to your preferred [facility] pharmacy. Take one tablet every 6 hours as needed for dizziness. - Avoid sudden movements of your head to help prevent dizziness. - If your symptoms worsen or do not improve, please let me know. We discussed your family history of hypertrophic cardiomyopathy (HCM): - I performed an EKG today, which showed normal results with low voltage QRS. This will serve as your baseline EKG. - You mentioned plans for genetic testing through the meter calibrator at [facility]. Please follow up with the genetic counselor as planned. We discussed your seasonal allergy symptoms: - You reported a runny nose and eye itching, which are new for you. These symptoms are likely due to seasonal allergies. We discussed your history of migraines: - You have not had any recent issues with migraines since your last visit. Please reach out if you have any new or worsening symptoms. documented in this encounter [facility] 09-08-2024 Note HNO ID: [id number] Author: NOLBERTO GANNON MD Service: ? Author Type: Physician Type: Progress Notes Filed: 09/08/2024 10:00 Note Text: This note was created using [employer]. Subjective Patient presents with: Dizziness Nausea Recording using [employer] software for draft documentation of the visit was discussed with the patient/authorized lead generation representative; all questions welcomed and answered. Patient/authorized lead generation representative agreed to proceed Janelle is a 39-year-old female, with a family history of hypertrophic cardiomyopathy, presenting with episodes of dizziness and nausea. Janelle reports two recent episodes of dizziness and nausea upon getting out of bed, one occurring yesterday and the other approximately two weeks prior. Each episode lasted almost the entire day and half a day, respectively. She describes the dizziness as similar to vertigo, with a sensation of imbalance. During these episodes, she also felt hot and flushed but denies any fever. She denies any weakness, numbness, emesis, syncope, or near-syncope. She also denies any respiratory symptoms, otalgia, hearing loss, chest pain, tightness, palpitations, or dyspnea. She did experience a headache during the episodes. She denies any issues with vision that could be contributing to the dizziness. Janelle checked her blood pressure yesterday, which was 141/76, higher than her usual readings in the 120s/80s. Her blood pressure was normal today. She has a family history of hypertrophic cardiomyopathy, with her brother being affected. Her children have been evaluated by a meter calibrator and were supposed to undergo genetic testing, which has not been done yet. She has not had an EKG herself. She also reports experiencing seasonal allergies, which is new for her, with symptoms of rhinorrhea and eye itching. She has had occasional tinnitus a few weeks ago but denies any recent episodes. She denies any issues with depression or anxiety and has not had any recent issues with migraines, except for one incident where she noted peripheral vision changes 2 years ago.. Review of Systems Per HPI. ACTIVE PROBLEM LIST Obesity, Class II, Bmi 35-39.9 Social History Tobacco Use Smoking status: Never Smokeless tobacco: Never Vaping Use Vaping status: Never Used Substance Use Topics Alcohol use: Not Currently Comment: 1-2 every 3 months. Drug use: Never Current Outpatient Medications Medication Sig multivitamin tablet Take 1 tablet by mouth once daily. No current facility-administered medications for this visit. Objective BP 123/82 (BP Site: Left Arm, BP Position: Supine, BP Cuff Size: Large Adult) Pulse 70 Wt 96 kg (211 lb 10.3 oz) LMP 07/12/2024 (Exact Date) BMI 38.71 kg/m? Physical Exam Constitutional: Appearance: She is not ill-appearing. HENT: Head: Normocephalic. Right Ear: Tympanic membrane normal. Left Ear: Tympanic membrane normal. Nose: No congestion or rhinorrhea. Mouth/Throat: Mouth: Mucous membranes are moist. Pharynx: Oropharynx is clear. Eyes: Extraocular Movements: Extraocular movements intact. Right eye: No nystagmus. Left eye: No nystagmus. Conjunctiva/sclera: Conjunctivae normal. Pupils: Pupils are equal, round, and reactive to light. Cardiovascular: Rate and Rhythm: Normal rate and regular rhythm. Heart sounds: No murmur heard. No gallop. Pulmonary: Breath sounds: Normal breath sounds. Musculoskeletal: Right lower leg: No edema. Left lower leg: No edema. Neurological: Mental Status: She is alert. Cranial Nerves: No cranial nerve deficit. Sensory: No sensory deficit. Motor: No weakness. Coordination: Coordination normal. Gait: Gait normal. EKG RESULTS: Low voltage QRS, otherwise normal. Assessment and Plan 1. Dizziness - ICD9: 780.4, ICD10: R42 (primary diagnosis) Consistent with vertigo. - ECG COMPLETE - MECLIZINE 12.5 MG TABLET See printed instructions or information. 2. Family history of hypertrophic cardiomyopathy - ICD9: V17.49, ICD10: Z82.49 Baseline EKG done. - ECG COMPLETE 3. Screening for depression - ICD9: V79.0, ICD10: Z13.31 - DEPRESSION SCREENING 4. Encounter for screening examination for other mental health and behavioral disorders - ICD9: V79.8, ICD10: Z13.39 - ANXIETY SCREENING Nolberto Gannon MD [facility] 09-08-2024 History of Presen t illness Narrative This note was created using [employer]. Subjective Patient presents with: Dizziness Nausea Recording using ambient [employer] software for draft documentation of the visit was discussed with the patient/authorized lead generation representative; all questions welcomed and answered. Patient/authorized lead generation representative agreed to proceed Janelle is a 39-year-old female, with a family history of hypertrophic cardiomyopathy, presenting with episodes of dizziness and nausea. Janelle reports two recent episodes of dizziness and nausea upon getting out of bed, one occurring yesterday and the other approximately two weeks prior. Each episode lasted almost the entire day and half a day, respectively. She describes the dizziness as similar to vertigo, with a sensation of imbalance. During these episodes, she also felt hot and flushed but denies any fever. She denies any weakness, numbness, emesis, syncope, or near-syncope. She also denies any respiratory symptoms, otalgia, hearing loss, chest pain, tightness, palpitations, or dyspnea. She did experience a headache during the episodes. She denies any issues with vision that could be contributing to the dizziness. Janelle checked her blood pressure yesterday, which was 141/76, higher than her usual readings in the 120s/80s. Her blood pressure was normal today. She has a family history of hypertrophic cardiomyopathy, with her brother being affected. Her children have been evaluated by a meter calibrator and were supposed to undergo genetic testing, which has not been done yet. She has not had an EKG herself. She also reports experiencing seasonal allergies, which is new for her, with symptoms of rhinorrhea and eye itching. She has had occasional tinnitus a few weeks ago but denies any recent episodes. She denies any issues with depression or anxiety and has not had any recent issues with migraines, except for one incident where she noted peripheral vision changes 2 years ago.. Review of Systems Per HPI. ACTIVE PROBLEM LIST Obesity, Class II, Bmi 35-39.9 Social History Tobacco Use Smoking status: Never Smokeless tobacco: Never Vaping Use Vaping status: Never Used Substance Use Topics Alcohol use: Not Currently Comment: 1-2 every 3 months. Drug use: Never Current Outpatient Medications Medication Sig multivitamin tablet Take 1 tablet by mouth once daily. No current facility-administered medications for this visit. Objective BP 123/82 (BP Site: Left Arm, BP Position: Supine, BP Cuff Size: Large Adult) Pulse 70 Wt 96 kg (211 lb 10.3 oz) LMP 07/12/2024 (Exact Date) BMI 38.71 kg/m Physical Exam Constitutional: Appearance: She is not ill-appearing. HENT: Head: Normocephalic. Right Ear: Tympanic membrane normal. Left Ear: Tympanic membrane normal. Nose: No congestion or rhinorrhea. Mouth/Throat: Mouth: Mucous membranes are moist. Pharynx: Oropharynx is clear. Eyes: Extraocular Movements: Extraocular movements intact. Right eye: No nystagmus. Left eye: No nystagmus. Conjunctiva/sclera: Conjunctivae normal. Pupils: Pupils are equal, round, and reactive to light. Cardiovascular: Rate and Rhythm: Normal rate and regular rhythm. Heart sounds: No murmur heard. No gallop. Pulmonary: Breath sounds: Normal breath sounds. Musculoskeletal: Right lower leg: No edema. Left lower leg: No edema. Neurological: Mental Status: She is alert. Cranial Nerves: No cranial nerve deficit. Sensory: No sensory deficit. Motor: No weakness. Coordination: Coordination normal. Gait: Gait normal. EKG RESULTS: Low voltage QRS, otherwise normal. Assessment and Plan 1. Dizziness - ICD9: 780.4, ICD10: R42 (primary diagnosis) Consistent with vertigo. - ECG COMPLETE - MECLIZINE 12.5 MG TABLET See printed instructions or information. 2. Family history of hypertrophic cardiomyopathy - ICD9: V17.49, ICD10: Z82.49 Baseline EKG done. - ECG COMPLETE 3. Screening for depression - ICD9: V79.0, ICD10: Z13.31 - DEPRESSION SCREENING 4. Encounter for screening examination for other mental health and behavioral disorders - ICD9: V79.8, ICD10: Z13.39 - ANXIETY SCREENING Nolberto Gannon MD documented in this encounter [facility] 08-21-2024 Telephone encounter Note Pt notified via [employer] and read message on 08/21/24. Order for EMB filed. Lani Edmonds RN [facility] 08-21-2024 Miscellaneous Notes Pt notified via [employer] and read message on 08/21/24. Order for EMB filed. Lani Edmonds RN Filed Wisam Echols MD Please approve endometrial biopsy order documented in this encounter [facility] 08-21-2024 Telephone encounter Note Filed Wisam Echols MD [facility] 08-21-2024 Telephone encounter Note Please approve endometrial biopsy order [facility] 08-18-2024 Instructions Malka Agustin MA - 08/18/2024 9:01 AM EDT YOUR RECOVERY It may take a few weeks for your cervix to heal. While your cervix heals, you may have: - Vaginal bleeding (less than a normal menstrual period) - Mild cramping - A brown-black vaginal discharge (similar to coffee grounds) which is a result of the paste used to help stop bleeding from the procedure Do NOT put anything in the vagina for 1 week after your colposcopy if your doctor does a biopsy of your cervix. This includes sex, tampons, and douches. If you have any discomfort, you may take an over the counter pain medication (motrin, advil, ibuprofen, tylenol, etc). If this does not relieve your discomfort, contact your doctor's office for a prescription strength pain medication. It is okay to wear a sanitary pad until the discharge and spotting stops. RISKS Although problems seldom occur with colposcopy, there can be some complications. You may feel faint during and shortly after the procedure as well as have some bleeding and vaginal discharge after the procedure. There is also a risk of infection after the procedure. These complications are rare and can be easily treated. You should contact you doctor is you have any of the following: - Heavy bleeding (more than your normal period) - Bleeding with clots - Severe abdominal pain - Fever (more than 100.4F) - Foul smelling vaginal discharge RESULTS If a biopsy was taken, we will have the results of your biopsy in 1-2 weeks. If you do not hear the results of your biopsy after 2 weeks, please contact your physicians office for the results. Depending on the biopsy results, your doctor will determine your follow up plan which may include further testing or treatments. STAYING HEALTHY After the procedure, you will need to see your doctor for follow up visits during the year. At these visits your doctor will check the health of your cervix with a pap smear. After three normal pap smears, your doctor will allow you to return to having exams once a year. If you have another abnormal pap smear, you may need closer follow up for longer or you may need additional treatment. By making a few lifestyle changes after the procedure, you can help protect the health of your cervix: - Have regular pelvic exams and pap smears as ordered by your doctor. - Stop smoking as smoking increases your risk of developing a cancer of the cervix - If you have more than one sexual partner, limit your number of partners and use condoms to reduce your risks of STDs. If you have any additional questions, please contact your doctor's office. documented in this encounter [facility] 08-18-2024 Note HNO ID: [id number] Author: WISAM ECHOLS MD Service: ? Author Type: Physician Type: Progress Notes Filed: 08/18/2024 09:30 Note Text: Medical Laboratory Manager offered: Patient accepts, visit chaperoned by Malka Sherman MA. Janelle is a 39 year old Female who presents today for a colposcopy. The patient's last pap smear was ASCUS with positive HPV from July 2024. Patient has a history of abnormal pap: Yes. The patient has had prior treatment: Colpo. test: negative UNIVERSAL PROTOCOL / SAFETY CHECKLIST Procedure to be Performed: Colposcopy with Possible Biopsy Sign In: A Moment of CARE was completed. Appropriate PPE (Personal Protective Equipment) worn by all providers involved with the procedure. Special equipment not required. Patient/Surrogate Stated/Verified: Patient name, Date of , Relevant allergies, and The intended procedure Time Out: Relevant labs, photos, and/or imaging studies have been reviewed. Intended patient and procedure match the source document(s) (e.g. consent, HANDP, associated studies [imaging, pathology]) match the intended patient and procedure. Consent obtained and matches the intended procedure. Yes. Correct side/site is not applicable. Medications required for this procedure are verified. Fire risk assessed and is not applicable. Implants: are not applicable. Sign Out: Specimens are all correctly labeled and sent. All instruments, equipment, possible retained foreign bodies are accounted for. Yes. The post-procedure plan of care has been communicated to the patient or surrogate. PROCEDURE: EXTERNAL GENITALIA: Normal in appearance without lesions VAGINA: Normal in appearance without lesions CERVIX: Speculum placed in vagina and excellent visualization of cervix achieved. Cervix swabbed x 3 with 3% acetic acid solution. Cervix grossly normal. Squamocolumnar junction visualized. No acetowhite changes, punctations, mosaicism or atypical vasculature noted. BIOPSY: Done at 3:00, 6:00, 9:00, and 12:00 ECC: done HEMOSTASIS: Obtained with silver nitrate and pressure Procedure Summary: Patient tolerated procedure well and colposcopy was adequate. ASSESSMENT: Atypical squamous cells of undetermined significance (ASC-US). Atypical glandular cells, endocervical type. HRHPV 16 positive PLAN: Specimens labeled and sent to Pathology. Will notify patient of results in 1-2 weeks. Post-procedure instructions reviewed and written material given to the patient. If indicated, lesion by colpo is amenable to office LEEP as lesion is small. Wisam Echols MD [facility] 08-18-2024 History of Presen t illness Narrative Medical Laboratory Manager offered: Patient accepts, visit chaperoned by Malka Sherman MAJoaquin Luis is a 39 year old Female who presents today for a colposcopy. The patient's last pap smear was ASCUS with positive HPV from July 2024. Patient has a history of abnormal pap: Yes. The patient has had prior treatment: Colpo. test: negative UNIVERSAL PROTOCOL / SAFETY CHECKLIST Procedure to be Performed: Colposcopy with Possible Biopsy Sign In: A Moment of CARE was completed. Appropriate PPE (Personal Protective Equipment) worn by all providers involved with the procedure. Special equipment not required. Patient/Surrogate Stated/Verified: Patient name, Date of , Relevant allergies, and The intended procedure Time Out: Relevant labs, photos, and/or imaging studies have been reviewed. Intended patient and procedure match the source document(s) (e.g. consent, H&P, associated studies [imaging, pathology]) match the intended patient and procedure. Consent obtained and matches the intended procedure. Yes. Correct side/site is not applicable. Medications required for this procedure are verified. Fire risk assessed and is not applicable. Implants: are not applicable. Sign Out: Specimens are all correctly labeled and sent. All instruments, equipment, possible retained foreign bodies are accounted for. Yes. The post-procedure plan of care has been communicated to the patient or surrogate. PROCEDURE: EXTERNAL GENITALIA: Normal in appearance without lesions VAGINA: Normal in appearance without lesions CERVIX: Speculum placed in vagina and excellent visualization of cervix achieved. Cervix swabbed x 3 with 3% acetic acid solution. Cervix grossly normal. Squamocolumnar junction visualized. No acetowhite changes, punctations, mosaicism or atypical vasculature noted. BIOPSY: Done at 3:00, 6:00, 9:00, and 12:00 ECC: done HEMOSTASIS: Obtained with silver nitrate and pressure Procedure Summary: Patient tolerated procedure well and colposcopy was adequate. ASSESSMENT: Atypical squamous cells of undetermined significance (ASC-US). Atypical glandular cells, endocervical type. HRHPV 16 positive PLAN: Specimens labeled and sent to Pathology. Will notify patient of results in 1-2 weeks. Post-procedure instructions reviewed and written material given to the patient. If indicated, lesion by colpo is amenable to office LEEP as lesion is small. Wisam Echols MD documented in this encounter [facility] 08-04-2024 Note HNO ID: [id number] Author: WISAM ECHOLS MD Service: ? Author Type: Physician Type: Progress Notes Filed: 08/04/2024 16:10 Note Text: Medical Laboratory Manager offered: Patient declines. Janelle is a 39 year old who presents for an annual gynecologic exam without complaints. Age at Menarche: 14-15 Still get period: Yes LMP: 07/12/2024 Menses: cycles every 28-30 days and 4-5 days of flow Menstrual flow: Moderate Bleeding amount bothersome: No Bleeding between periods: No Period symptoms: Acne and cramps Sexually active: Yes Time with current partner: 5 years Contraception: Tubal Ligation Contraception frequency: Always HPV vaccine: Yes HPV:positive Last pap smear: 07/26/2023, negative History of abnormal pap: Yes Colposcopy: Yes: repap 1 year Leep: No. Cone biopsy: No. 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: Sexual Activity: Yes; Male Contraception: Tubal Ligation PAST MEDICAL HISTORY Diagnosis Date NEGATIVE MEDICAL HISTORY PAST SURGICAL HISTORY Procedure Laterality Date DELIVERY ONLY 2011 , low transverse x 3, FAMILY HISTORY Problem Relation Age of Onset No Known Problems Mother None Father Heart disease Brother 1 congenital Heart disease Heart Brother hypertrophic cardiomyopathy No Known Problems Brother No Known Problems Brother No Known Problems Brother No Known Problems Brother No Known Problems Brother No Known Problems Brother No Known Problems Brother Leukemia Paternal Grandmother 80 Heart disease Paternal Grandfather 60 SOCIAL HISTORY Social History Tobacco Use Smoking status: Never Smokeless tobacco: Never Vaping Use Vaping status: Never Used Substance Use Topics Alcohol use: Not Currently Comment: 1-2 every 3 months. Drug use: Never REVIEW OF SYSTEMS Abdomen: No abdominal pain, nausea, vomiting, diarrhea, or constipation. No bloating, early satiety, indigestion, or increased flatulence. Bladder: No dysuria, gross hematuria, urinary frequency, urinary urgency, or incontinence. Breast: No breast lumps, nipple d/c, overlying skin changes, redness or skin retraction. Allergies and current medication updated:Yes SENSITIVE EXAM: The sensitive examination was discussed with the Patient or Patient's Authorized Wire Brusher. As applicable, any other physician, advance practice provider, medical student, or other health professional student that will be observing or involved in the sensitive examination for educational or training purposes was discussed with the Patient or Authorized Wire Brusher. The Patient or Authorized Wire Brusher has agreed to proceed with the sensitive examination. (Sensitive examination includes inspection and/or palpation of the breasts, pelvis, prostate and anorectal regions). EXAM: BP 120/80 Ht 5' 2 (1.58m) Wt 208 lb (94.3kg) LMP 07/12/2024 BMI 38.03 kg/(m2). GENERAL: pleasant, female in no apparent distress BREAST: soft, non-tender, symmetric, no dominant mass, normal nipple-areolar complex, no lymphadenopathy, and no nipple discharge CHEST: Normal inspiratory effort ABDOMEN: soft, non-tender, and no masses PELVIC: external genitalia normal, normal Bartholin's glands, urethra, Sparkman's glands, no vulvar lesions, no cervical lesions, good vaginal support, physiologic discharge present, normal appearing perineal body and perianal region BIMANUAL: uterus normal size, shape and consistency, no adnexal masses, and non-tender RECTOVAGINAL: deferred. NEURO: alert and oriented x3,exam grossly non-focal EXTREMITIES: normal ASSESSMENT/PLAN: 1) Health maintenance: Pap done with HPV - h/o abnormal. Mammogram starting age 40. Nutrition, exercise and routine health maintenance exams reviewed. Calcium/Vitamin D supplementation information provided. 2) Contraception: tubal sterilization. Contraceptive options reviewed and information provided. 3) Follow up one year or sooner as needed Wisam Echols MD [facility] 08-04-2024 History of Presen t illness Narrative Medical Laboratory Manager offered: Patient declines. Janelle is a 39 year old who presents for an annual gynecologic exam without complaints. Age at Menarche: 14-15 Still get period: Yes LMP: 07/12/2024 Menses: cycles every 28-30 days and 4-5 days of flow Menstrual flow: Moderate Bleeding amount bothersome: No Bleeding between periods: No Period symptoms: Acne and cramps Sexually active: Yes Time with current partner: 5 years Contraception: Tubal Ligation Contraception frequency: Always HPV vaccine: Yes HPV:positive Last pap smear: 07/26/2023, negative History of abnormal pap: Yes Colposcopy: Yes: repap 1 year Leep: No. Cone biopsy: No. 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: Sexual Activity: Yes; Male Contraception: Tubal Ligation PAST MEDICAL HISTORY Diagnosis Date NEGATIVE MEDICAL HISTORY PAST SURGICAL HISTORY Procedure Laterality Date DELIVERY ONLY 2011 , low transverse x 3, FAMILY HISTORY Problem Relation Age of Onset No Known Problems Mother None Father Heart disease Brother 1 congenital Heart disease Heart Brother hypertrophic cardiomyopathy No Known Problems Brother No Known Problems Brother No Known Problems Brother No Known Problems Brother No Known Problems Brother No Known Problems Brother No Known Problems Brother Leukemia Paternal Grandmother 80 Heart disease Paternal Grandfather 60 SOCIAL HISTORY Social History Tobacco Use Smoking status: Never Smokeless tobacco: Never Vaping Use Vaping status: Never Used Substance Use Topics Alcohol use: Not Currently Comment: 1-2 every 3 months. Drug use: Never REVIEW OF SYSTEMS Abdomen: No abdominal pain, nausea, vomiting, diarrhea, or constipation. No bloating, early satiety, indigestion, or increased flatulence. Bladder: No dysuria, gross hematuria, urinary frequency, urinary urgency, or incontinence. Breast: No breast lumps, nipple d/c, overlying skin changes, redness or skin retraction. Allergies and current medication updated:Yes SENSITIVE EXAM: The sensitive examination was discussed with the Patient or Patient's Authorized Wire Brusher. As applicable, any other physician, advance practice provider, medical student, or other health professional student that will be observing or involved in the sensitive examination for educational or training purposes was discussed with the Patient or Authorized Wire Brusher. The Patient or Authorized Wire Brusher has agreed to proceed with the sensitive examination. (Sensitive examination includes inspection and/or palpation of the breasts, pelvis, prostate and anorectal regions). EXAM: BP 120/80 Ht 5' 2 (1.58m) Wt 208 lb (94.3kg) LMP 07/12/2024 BMI 38.03 kg/(m^2). GENERAL: pleasant, female in no apparent distress BREAST: soft, non-tender, symmetric, no dominant mass, normal nipple-areolar complex, no lymphadenopathy, and no nipple discharge CHEST: Normal inspiratory effort ABDOMEN: soft, non-tender, and no masses PELVIC: external genitalia normal, normal Bartholin's glands, urethra, Sparkman's glands, no vulvar lesions, no cervical lesions, good vaginal support, physiologic discharge present, normal appearing perineal body and perianal region BIMANUAL: uterus normal size, shape and consistency, no adnexal masses, and non-tender RECTOVAGINAL: deferred. NEURO: alert and oriented x3,exam grossly non-focal EXTREMITIES: normal ASSESSMENT/PLAN: 1) Health maintenance: Pap done with HPV - h/o abnormal. Mammogram starting age 40. Nutrition, exercise and routine health maintenance exams reviewed. Calcium/Vitamin D supplementation information provided. 2) Contraception: tubal sterilization. Contraceptive options reviewed and information provided. 3) Follow up one year or sooner as needed Wisam Echols MD documented in this encounter [facility] 02-24-2024 Note HNO ID: [id number] Author: ANNALEE KEY RN Service: ? Author Type: Registered Nurse Type: Progress Notes Filed: 02/24/2024 09:10 Note Text: Patient identified by name and date of . Janelle Yan is here for her HPV Gardasil vaccination, injection # three of the series. Patient ?No Gardasil injection was given without incident. See immunizations for details of immunizations administered today. VIS sheet provided: Yes Patient advised to follow up in Series completed Provider Sierra Quinn CNM was present in office at time of injection. Annalee Key RN [facility] 02-24-2024 History of Presen t illness Narrative Patient identified by name and date of . Janelle Yan is here for her HPV Gardasil vaccination, injection # three of the series. Patient ?No Gardasil injection was given without incident. See immunizations for details of immunizations administered today. VIS sheet provided: Yes Patient advised to follow up in Series completed Provider Sierra Quinn CNM was present in office at time of injection. Annalee Key RN documented in this encounter [facility] 02-24-2024 Instructions Annalee Key RN - 02/24/2024 9:01 AM EDT Gardasil Gardasil is a vaccine to protect against Human Papillomavirus (HPV) types 6, 11, 16, 18, 31,33,45, 52, 58. These viruses cause cancer and precancerous lesions on the cervix (opening between vagina and uterus), in the vagina and on the vulva (skin around the outside of the vagina) as well as genital warts. The vaccine cannot cause these diseases and cannot treat them if already present. Gardasil works best if given before contact with HPV. Most people are exposed to HPV soon after starting sexual activity. The vaccine is recommended between the ages of 9 and 45. Gardasil does not protect against all strains of HPV. Women who receive the vaccine still need to have regular pelvic exams and cervical cancer screening with the pap smear. You should ask your doctor if Gardasil is right for you if you have a weakened immune system, a bleeding disorder, plan to become soon or have a current illness causing fever. Gardasil is not recommended for women. You should be sure your doctor is aware of any allergies you have and all medications and herbal supplements you take. Gardasil is given to those ages 9-14 in 2 doses at 0 and 8 months. In ages 15-45, three injections are given at 0,2,6 months. Common side effects include pain, redness, itching and swelling at the injection site, nausea, fever, dizziness and fainting. Rare but potentially serious reactions have been reported. These include allergic reaction, swollen glands, joint and muscle pain, weakness and Guillain-Cumberland syndrome. documented in this encounter [facility] 10-17-2023 Sherita Stokes LPN - 10/17/2023 9:53 AM EDT Gardasil Gardasil is a vaccine to protect against Human Papillomavirus (HPV) types 6, 11, 16, 18, 31,33,45, 52, 58. These viruses cause cancer and precancerous lesions on the cervix (opening between vagina and uterus), in the vagina and on the vulva (skin around the outside of the vagina) as well as genital warts. The vaccine cannot cause these diseases and cannot treat them if already present. Gardasil works best if given before contact with HPV. Most people are exposed to HPV soon after starting sexual activity. The vaccine is recommended between the ages of 9 and 45. Gardasil does not protect against all strains of HPV. Women who receive the vaccine still need to have regular pelvic exams and cervical cancer screening with the pap smear. You should ask your doctor if Gardasil is right for you if you have a weakened immune system, a bleeding disorder, plan to become soon or have a current illness causing fever. Gardasil is not recommended for women. You should be sure your doctor is aware of any allergies you have and all medications and herbal supplements you take. Gardasil is given to those ages 9-14 in 2 doses at 0 and 8 months. In ages 15-45, three injections are given at 0,2,6 months. Common side effects include pain, redness, itching and swelling at the injection site, nausea, fever, dizziness and fainting. Rare but potentially serious reactions have been reported. These include allergic reaction, swollen glands, joint and muscle pain, weakness and Guillain-Cumberland syndrome. documented in this encounter [facility] 10-17-2023 History of Presen t illness Narrative Patient identified by name and date of . Janelle Yan is here for her HPV 9 vaccination, injection # two of the series. Patient ?No Gardasil injection was given without incident. See immunizations for details of immunizations administered today. VIS sheet provided: Yes Patient advised to follow up in 4 months from the 2nd injection Provider Dr. Echols was present in office at time of injection. Sherita Jonas LPN documented in this encounter [facility] 09-24-2023 Telephone encounter Note Patient notified. Allegra Nevarez RN [facility] 09-24-2023 Miscellaneous Notes Patient notified. Allegra Nevarez RN Left message for patient to call office. Annalee Key RN ----- Message from Wisam Echols MD sent at 09/24/2023 10:47 AM EDT ----- LSIL on 1 biopsy Needs repeat pap with hpv 1 year Wisam Echols MD documented in this encounter [facility] 09-24-2023 Telephone encounter Note Left message for patient to call office. Annalee Key RN [facility] 09-24-2023 Telephone encounter Note ----- Message from Wisam Echols MD sent at 09/24/2023 10:47 AM EDT ----- LSIL on 1 biopsy Needs repeat pap with hpv 1 year Wisam Echols MD [facility] 09-19-2023 Instructions Kaylen Lucio MA - 09/19/2023 9:06 AM EDT YOUR RECOVERY It may take a few weeks for your cervix to heal. While your cervix heals, you may have: - Vaginal bleeding (less than a normal menstrual period) - Mild cramping - A brown-black vaginal discharge (similar to coffee grounds) which is a result of the paste used to help stop bleeding from the procedure Do NOT put anything in the vagina for 1 week after your colposcopy if your doctor does a biopsy of your cervix. This includes sex, tampons, and douches. If you have any discomfort, you may take an over the counter pain medication (motrin, advil, ibuprofen, tylenol, etc). If this does not relieve your discomfort, contact your doctor's office for a prescription strength pain medication. It is okay to wear a sanitary pad until the discharge and spotting stops. RISKS Although problems seldom occur with colposcopy, there can be some complications. You may feel faint during and shortly after the procedure as well as have some bleeding and vaginal discharge after the procedure. There is also a risk of infection after the procedure. These complications are rare and can be easily treated. You should contact you doctor is you have any of the following: - Heavy bleeding (more than your normal period) - Bleeding with clots - Severe abdominal pain - Fever (more than 100.4F) - Foul smelling vaginal discharge RESULTS If a biopsy was taken, we will have the results of your biopsy in 1-2 weeks. If you do not hear the results of your biopsy after 2 weeks, please contact your physicians office for the results. Depending on the biopsy results, your doctor will determine your follow up plan which may include further testing or treatments. STAYING HEALTHY After the procedure, you will need to see your doctor for follow up visits during the year. At these visits your doctor will check the health of your cervix with a pap smear. After three normal pap smears, your doctor will allow you to return to having exams once a year. If you have another abnormal pap smear, you may need closer follow up for longer or you may need additional treatment. By making a few lifestyle changes after the procedure, you can help protect the health of your cervix: - Have regular pelvic exams and pap smears as ordered by your doctor. - Stop smoking as smoking increases your risk of developing a cancer of the cervix - If you have more than one sexual partner, limit your number of partners and use condoms to reduce your risks of STDs. If you have any additional questions, please contact your doctor's office. documented in this encounter [facility] 09-19-2023 History of Presen t illness Narrative Janelle is a 38 year old Female who presents today for a colposcopy. The patient's last pap smear was High risk HPV with normal pap from July 2023. Patient has a history of abnormal pap: No. The patient has had prior treatment: none. test: negative UNIVERSAL PROTOCOL / SAFETY CHECKLIST Procedure to be Performed: colposcopy with biopsy Sign In: A Moment of CARE was completed. Personnel directly involved with the procedure wore the appropriate PPE (Personal Protective Equipment). Patient/Surrogate Stated/Verified: PATIENT VERIFIED(optional for EMERGENT procedures): Patient name, Date of , Relevant allergies, and The intended procedure Time Out Communication: Intended patient and procedure match the source documents. Consent documented and matches the intended procedure. Sign Out: SIGN OUT (optional for EMERGENT procedures): All specimen containers correctly labeled. All instruments, equipment, possible retained foreign bodies accounted for. Post-procedure follow-up management communicated and Plan of Care Visit completed when applicable. PROCEDURE: EXTERNAL GENITALIA: Normal in appearance without lesions VAGINA: Normal in appearance without lesions CERVIX: Speculum placed in vagina and excellent visualization of cervix achieved. Cervix swabbed x 3 with 3% acetic acid solution. Cervix grossly normal. Squamocolumnar junction visualized. Possible acetowhite changes noted 6&12. BIOPSY: Done at 6:00 and 12:00 ECC: done HEMOSTASIS: Obtained with silver nitrate and pressure Procedure Summary: Patient tolerated procedure well and colposcopy was adequate. ASSESSMENT: HPV effect PLAN: Specimens labeled and sent to Pathology. Will notify patient of results in 1-2 weeks. Post-procedure instructions reviewed and written material given to the patient. If indicated, lesion by colpo is amenable to office LEEP as lesion is small. Wisam Echols MD documented in this encounter [facility] 09-05-2023 Miscellaneous Notes Patient notified. [place] appointment scheduled. Annalee Key RN Left message for patient to call office. Wisam Echols MD Highman, Jennifer, RN Could you please call this patient and let her know that I now recommend a colposcopy. I apologize for any confusion but I reviewed updated guidelines which state any patient that is positive for HPV 16 or 18 should have a colposcopy. Wisam Echols MD documented in this encounter [facility] 08-15-2023 History of Presen t illness Narrative Patient identified by name and date of . Janelle Yan is here for her HPV 9 vaccination, injection # one of the series. Patient ?No Gardasil injection was given without incident. See immunizations for details of immunizations administered today. VIS sheet provided: Yes Patient advised to follow up in 2 months from the 1st injection Provider Zully Fernandez CNM was present in office at time of injection. ALIDA TAPIA RN documented in this encounter [facility] 08-15-2023 Instructions Alida Tapia RN - 08/15/2023 9:06 AM EDT Gardasil Gardasil is a vaccine to protect against Human Papillomavirus (HPV) types 6, 11, 16, 18, 31,33,45, 52, 58. These viruses cause cancer and precancerous lesions on the cervix (opening between vagina and uterus), in the vagina and on the vulva (skin around the outside of the vagina) as well as genital warts. The vaccine cannot cause these diseases and cannot treat them if already present. Gardasil works best if given before contact with HPV. Most people are exposed to HPV soon after starting sexual activity. The vaccine is recommended between the ages of 9 and 45. Gardasil does not protect against all strains of HPV. Women who receive the vaccine still need to have regular pelvic exams and cervical cancer screening with the pap smear. You should ask your doctor if Gardasil is right for you if you have a weakened immune system, a bleeding disorder, plan to become soon or have a current illness causing fever. Gardasil is not recommended for women. You should be sure your doctor is aware of any allergies you have and all medications and herbal supplements you take. Gardasil is given to those ages 9-14 in 2 doses at 0 and 8 months. In ages 15-45, three injections are given at 0,2,6 months. Common side effects include pain, redness, itching and swelling at the injection site, nausea, fever, dizziness and fainting. Rare but potentially serious reactions have been reported. These include allergic reaction, swollen glands, joint and muscle pain, weakness and Guillain-Cumberland syndrome. documented in this encounter [facility] 08-08-2023 Miscellaneous Notes Done Wisam Echols MD Patient notified. Agreeable to HPV vaccine. Nurse visit scheduled. Please file pending orders. Thank you. Annalee Key, RN Left message for patient to call office. Allegra Nevarez RN ----- Message from Wisam Echols MD sent at 08/08/2023 12:48 PM EDT ----- Pap negative HRHPV positive Needs repeat samra & hpv in 1 year Also recommend HPV vaccine Wisam Echols MD documented in this encounter [facility] 07-26-2023 History of Presen t illness Narrative Medical Laboratory Manager offered: Patient declines. Janelle is a 38 year old who presents for an annual gynecologic exam. Menses: cycles every 28-30 days and 5-7 days of flow. Contraception: tubal sterilization HPV vaccine: No Last Pap: normal HPV: N/A History of abnormal pap: No Last mammogram: never OB History No obstetric history on file. 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 Comments: Sexual Activity: No sexual activity data on record; No partner data on record Contraception: No contraception data on record PAST MEDICAL HISTORY Diagnosis Date NEGATIVE MEDICAL HISTORY PAST SURGICAL HISTORY Procedure Laterality Date DELIVERY ONLY 2011 , low transverse x 3, FAMILY HISTORY Problem Relation Age of Onset No Known Problems Mother None Father Heart disease Brother 1 congenital Heart disease No Known Problems Brother No Known Problems Brother No Known Problems Brother No Known Problems Brother No Known Problems Brother No Known Problems Brother No Known Problems Brother No Known Problems Brother Leukemia Paternal Grandmother 80 Heart disease Paternal Grandfather 60 SOCIAL HISTORY Social History Tobacco Use Smoking status: Never Smokeless tobacco: Never Vaping Use Vaping Use: Never used Substance Use Topics Alcohol use: Yes Comment: 1-2 every 3 months. Drug use: Never REVIEW OF SYSTEMS Abdomen: No abdominal pain, nausea, vomiting, diarrhea, or constipation. No bloating, early satiety, indigestion, or increased flatulence. Bladder: No dysuria, gross hematuria, urinary frequency, urinary urgency, or incontinence. Breast: No breast lumps, nipple d/c, overlying skin changes, redness or skin retraction. She reports just before menses she notices and enlarged area near right axilla. It resolves with menses. Denies other breast concerns. Allergies and current medication updated:Yes EXAM: LMP 12/01/2018 GENERAL: pleasant, female in no apparent distress BREAST: soft, non-tender, symmetric, no dominant mass, normal nipple-areolar complex, no lymphadenopathy, and no nipple discharge CHEST: Normal inspiratory effort ABDOMEN: soft, non-tender, and no masses PELVIC: external genitalia normal, normal Bartholin's glands, urethra, Sparkman's glands, no vulvar lesions, no cervical lesions, good vaginal support, physiologic discharge present, normal appearing perineal body and perianal region BIMANUAL: uterus normal size, shape and consistency, no adnexal masses, and non-tender RECTOVAGINAL: deferred. NEURO: alert and oriented x3,exam grossly non-focal EXTREMITIES: normal ASSESSMENT/PLAN: 1) Health maintenance: Pap done with HPV. Mammogram starting age 40. Nutrition, exercise and routine health maintenance exams reviewed. 2) Contraception: tubal sterilization. Contraceptive options reviewed and information provided. 3) Cyclic breast changes - reassured patient these are normal. Continue SBE & call with concerns. 4) Follow up one year or sooner as needed Wisam Echols MD documented in this encounter [facility] 11-02-2022 History of Presen t illness Narrative This note was created using NoteWriter. Subjective Patient presents with: Establish Care Janelle Yan was here to establish and have her lipids checked. She was in good general health although weight has been going up and exercise was less than when she was younger. She was seen 2 weeks ago at [facility] for what sounded like a viral syndrome with cervical lymphadenopathy. Symptoms have resolved and labs were normal. Today, she had new onset left eye wavy lines and loss of peripheral vision for a few minutes, followed by right orbital headache. She rested and slept off her headache. She had no prior migraine. Her eye examination was current. Last PCP Eun Stevenson PA-C. Last mixer tender: Dr. Kraft (retired). Data Operations Leader: Dr. Mchugh. Review of Systems Constitutional: Negative for appetite change, chills, diaphoresis, fatigue, fever and unexpected weight change. HENT: Negative for congestion, ear pain and mouth sores. Eyes: Negative for pain. Respiratory: Negative for cough, chest tightness and shortness of breath. Cardiovascular: Negative for chest pain, palpitations and leg swelling. Gastrointestinal: Negative for abdominal pain, constipation, diarrhea, nausea and vomiting. Genitourinary: Negative for difficulty urinating, dysuria and menstrual problem. Musculoskeletal: Negative for arthralgias, back pain and myalgias. Skin: Negative. Neurological: Negative for dizziness, syncope, facial asymmetry, speech difficulty, weakness, light-headedness and numbness. Psychiatric/Behavioral: Negative for dysphoric mood. The patient is not nervous/anxious. PAST MEDICAL HISTORY Diagnosis Date NEGATIVE MEDICAL HISTORY PAST SURGICAL HISTORY Procedure Laterality Date DELIVERY ONLY 2011 , low transverse x 3, FAMILY HISTORY Problem Relation Age of Onset No Known Problems Mother None Father Heart disease Brother 1 congenital Heart disease No Known Problems Brother No Known Problems Brother No Known Problems Brother No Known Problems Brother No Known Problems Brother No Known Problems Brother No Known Problems Brother No Known Problems Brother Leukemia Paternal Grandmother 80 Heart disease Paternal Grandfather 60 Social History Tobacco Use Smoking status: Never Smokeless tobacco: Never Vaping Use Vaping Use: Never used Substance Use Topics Alcohol use: Yes Comment: 1-2 every 3 months. Drug use: Never ALLERGIES No Known Allergies No current outpatient medications on file. No current facility-administered medications for this visit. Immunization History Administered Date(s) Administered COVID-19 original vaccine, age 12+ yr, monovalent (Storify-Xenapto - PURPLE TOP) 01/17/2021 02/07/2021 hepatitis A (HepA) vaccine, unspecified formulation 12/10/2003 hepatitis B (HepB-CpG) vaccine, adult, 2-dose series (HEPLISAV-B) 10/12/2022 influenza (IIV4) vaccine, age 6 mo - 64 yr, quadrivalent, PF (AFLURIA, FLUARIX, FLULAVAL, FLUZONE) 04/05/2022 influenza (ccIIV4) vaccine, age 6+ mo, quadrivalent, PF (FLUCELVAX) 02/23/2019 measles mumps rubella (MMR) vaccine (M-M-R II, PRIORIX) 11/03/1987 01/19/2019 tetanus diphtheria (Td) vaccine, adult, unspecified formulation 11/30/2003 tetanus diphtheria pertussis (Tdap) vaccine, age 7+ yr (ADACEL, BOOSTRIX) 01/19/2019 Objective BP (P) 110/66 (BP Site: Left Arm, BP Position: Sitting, BP Cuff Size: Large Adult) Pulse (P) 78 Ht (P) 157.5 cm (5' 2) Wt (P) 93 kg (205 lb) LMP 12/01/2018 (Approximate) BMI (P) 37.49 kg/m Physical Exam Constitutional: Appearance: She is not ill-appearing. HENT: Head: Normocephalic. Nose: Nose normal. Mouth/Throat: Pharynx: Oropharynx is clear. Eyes: Extraocular Movements: Extraocular movements intact. Pupils: Pupils are equal, round, and reactive to light. Funduscopic exam: Right eye: No exudate or papilledema. Left eye: No exudate or papilledema. Neck: Vascular: No carotid bruit. Cardiovascular: Rate and Rhythm: Normal rate and regular rhythm. Heart sounds: No murmur heard. No gallop. Pulmonary: Effort: Pulmonary effort is normal. Breath sounds: Normal breath sounds. Abdominal: Palpations: Abdomen is soft. Tenderness: There is no abdominal tenderness. Musculoskeletal: General: Normal range of motion. Cervical back: Neck supple. No tenderness. Right lower leg: No edema. Left lower leg: No edema. Lymphadenopathy: Cervical: No cervical adenopathy. Skin: Findings: No lesion. Neurological: General: No focal deficit present. Mental Status: She is alert and oriented to person, place, and time. Cranial Nerves: No cranial nerve deficit. Sensory: No sensory deficit. Motor: No weakness. Coordination: Coordination normal. Gait: Gait normal. Deep Tendon Reflexes: Reflexes normal. Psychiatric: Mood and Affect: Mood normal. Behavior: Behavior normal. Depression Screening 11/01/2022 11/02/2022 PHQ-2 Score 2 2 PHQ-9 Score 6 - ROOPA-2 Total Score 2 - ROOPA-7 Total Score 5 - Depression screening tool completed and reviewed. Based on score and interview, patient is not at risk for depression. Screening tool discussed with patient, and I recommended no further intervention at this time. Assessment and Plan 1. Routine medical exam - ICD9: V70.0, ICD10: Z00.00 (primary diagnosis) - Counseled on healthy diet and regular exercise - Discussed need and benefit for weight loss. No weight on file for this encounter. - Depression screening tool completed and reviewed with patient. Based on score and interview, patient is not at risk for depression and recommended no further intervention at this time. - Vaccines declined for now. 2. Migraine with aura and without status migrainosus, not intractable - ICD9: 346.00, ICD10: G43.109 New onset, mild. Monitor. Return if worse. 3. Screening for HIV without presence of risk factors - ICD9: V73.89, ICD10: Z11.4 - HIV 1 2 COMBO(AG/AB),WITH REFLEX TO DIFFERENTIATION 4. Encounter for hepatitis C screening test for low risk patient - ICD9: V73.89, ICD10: Z11.59 - HEP C AB IA W/CONF SCRN 5. Encounter for screening for lipid disorder - ICD9: V77.91, ICD10: Z13.220 - LIPID PANEL BASIC 6. Obesity, Class II, BMI 35-39.9 - ICD9: 278.00, ICD10: E66.9 Newly diagnosed - Behavioral intervention - TSH BLD Nolberto Gannon MD documented in this encounter [facility] Evaluation note No assessment inform ation available [facility] Work Phone: Evaluation note Diagnosis Routine medical exam- Primary Routine general medical examination at a health care facility Migraine with aura and without status migrainosus, not intractable Migraine with aura, without mention of intractable migraine without mention of status migrainosus Screening for HIV without presence of risk factors Special screening examination for other specified viral diseases Encounter for hepatitis C screening test for low risk patient Encounter for screening for lipid disorder Obesity, Class II, BMI 35-39.9 Obesity, unspecified [facility] Encounter for gynecological examination (general) (routine) without abnormal findings- Primary Screening for cervical cancer Screening for malignant neoplasm of the cervix Encounter for screening for human papillomavirus (HPV) Special screening examination for human papillomavirus (HPV) [facility] Need for prophylactic vaccination/inoculation against viral disease- Primary Need for prophylactic vaccination and inoculation against other viral diseases [facility] Diagnosis Cervical high risk human papillomavirus (HPV) DNA test positive- Primary [facility] Diagnosis Need for prophylactic vaccination/inoculation against viral disease- Primary Need for prophylactic vaccination and inoculation against other viral diseases [facility] Need for prophylactic vaccination/inoculation against viral disease- Primary Need for prophylactic vaccination and inoculation against other viral diseases [facility] Diagnosis Encounter for gynecological examination (general) (routine) without abnormal findings- Primary Screening for cervical cancer Screening for malignant neoplasm of the cervix Encounter for screening for human papillomavirus (HPV) Special screening examination for human papillomavirus (HPV) [facility] Diagnosis ASCUS with positive high risk HPV cervical- Primary Cervical high risk human papillomavirus (HPV) DNA test positive [facility] Diagnosis Atypical glandular cells of undetermined significance (MIESHA) on cervical Pap smear- Primary Abnormal glandular Papanicolaou smear of cervix [facility] Diagnosis Dizziness- Primary Dizziness and giddiness Family history of hypertrophic cardiomyopathy Family history of other cardiovascular diseases Screening for depression Encounter for screening examination for other mental health and behavioral disorders [facility] Diagnosis Atypical glandular cells of undetermined significance (MIESHA) on cervical Pap smear- Primary Abnormal glandular Papanicolaou smear of cervix [facility] Diagnosis Endometrial polyp Polyp of corpus uteri [facility] Diagnosis Endometrial polyp- Primary Polyp of corpus uteri Visit for pre-operative examination Preoperative examination, unspecified Dysmenorrhea [facility] Diagnosis Endometrial polyp- Primary Polyp of corpus uteri Endometrial polyp Polyp of corpus uteri [facility] Diagnostic Procedure Only (Routine) - Closed Specialty Diagnoses / Procedures Referred By Nikko cabrales Referred To Contact [facility] Diagnoses Endometrial polyp Procedures PELVIC US WHI US PELVIC NONOBSTETRIC REAL-TIME IMAGE COMPLETE Wisam Echols MD [address] [place] [address] Phone: tel: fax: [facility] [address] [place] [address] Referral ID Status Reason Start Date Expiration Date V isits Requested Visits Authorized [id number] Closed Auto-Generate d Referral 09/18/2024 09/18/2025 1 1 [facility] Summary Purpose Family History No Family History Records FoundNo Family History Records Found Advance Directives No Advanced Directives Records FoundNo Advanced Directives Records Found Additional Source Comments Goals (unrecognized section and content) Goals may be documented in a n alternate section Source Comments (unrecognize d section and content) In the event this informatio n is protected by the Federal Confidentiality of Alcohol and Drug Abuse Patient Records regulations: The Federal rules restrict any use of the information to criminally investigate or prosecute any alcohol or drug abuse patient.[facility] the event this information is protected by the Federal Confidentiality of Alcohol and Drug Abuse Patient Records regulations: The Federal rules restrict any use of the information to criminally investigate or prosecute any alcohol or drug abuse patient.[facility] the event this information is protected by the Federal Confidentiality of Alcohol and Drug Abuse Patient Records regulations: The Federal rules restrict any use of the information to criminally investigate or prosecute any alcohol or drug abuse patient.[facility] the event this information is protected by the Federal Confidentiality of Alcohol and Drug Abuse Patient Records regulations: The Federal rules restrict any use of the information to criminally investigate or prosecute any alcohol or drug abuse patient.[facility] the event this information is protected by the Federal Confidentiality of Alcohol and Drug Abuse Patient Records regulations: The Federal rules restrict any use of the information to criminally investigate or prosecute any alcohol or drug abuse patient.[facility] the event this information is protected by the Federal Confidentiality of Alcohol and Drug Abuse Patient Records regulations: The Federal rules restrict any use of the information to criminally investigate or prosecute any alcohol or drug abuse patient.[facility] the event this information is protected by the Federal Confidentiality of Alcohol and Drug Abuse Patient Records regulations: The Federal rules restrict any use of the information to criminally investigate or prosecute any alcohol or drug abuse patient.[facility] the event this information is protected by the Federal Confidentiality of Alcohol and Drug Abuse Patient Records regulations: The Federal rules restrict any use of the information to criminally investigate or prosecute any alcohol or drug abuse patient.[facility] the event this information is protected by the Federal Confidentiality of Alcohol and Drug Abuse Patient Records regulations: The Federal rules restrict any use of the information to criminally investigate or prosecute any alcohol or drug abuse patient.[facility] the event this information is protected by the Federal Confidentiality of Alcohol and Drug Abuse Patient Records regulations: The Federal rules restrict any use of the information to criminally investigate or prosecute any alcohol or drug abuse patient.[facility] the event this information is protected by the Federal Confidentiality of Alcohol and Drug Abuse Patient Records regulations: The Federal rules restrict any use of the information to criminally investigate or prosecute any alcohol or drug abuse patient.[facility] the event this information is protected by the Federal Confidentiality of Alcohol and Drug Abuse Patient Records regulations: The Federal rules restrict any use of the information to criminally investigate or prosecute any alcohol or drug abuse patient.[facility] the event this information is protected by the Federal Confidentiality of Alcohol and Drug Abuse Patient Records regulations: The Federal rules restrict any use of the information to criminally investigate or prosecute any alcohol or drug abuse patient.[facility] Hospital[facility] the event this information is protected by the Federal Confidentiality of Alcohol and Drug Abuse Patient Records regulations: The Federal rules restrict any use of the information to criminally investigate or prosecute any alcohol or drug abuse patient.[facility] Hospital[facility] the event this information is protected by the Federal Confidentiality of Alcohol and Drug Abuse Patient Records regulations: The Federal rules restrict any use of the information to criminally investigate or prosecute any alcohol or drug abuse patient.[facility] HospitalIn the event this information is protected by the Federal Confidentiality of Alcohol and Drug Abuse Patient Records regulations: The Federal rules restrict any use of the information to criminally investigate or prosecute any alcohol or drug abuse patient.[facility] HospitalIn the event this information is protected by the Federal Confidentiality of Alcohol and Drug Abuse Patient Records regulations: The Federal rules restrict any use of the information to criminally investigate or prosecute any alcohol or drug abuse patient.[facility] Hospital[facility] the event this information is protected by the Federal Confidentiality of Alcohol and Drug Abuse Patient Records regulations: The Federal rules restrict any use of the information to criminally investigate or prosecute any alcohol or drug abuse patient.[facility] HospitalIn the event this information is protected by the Federal Confidentiality of Alcohol and Drug Abuse Patient Records regulations: The Federal rules restrict any use of the information to criminally investigate or prosecute any alcohol or drug abuse patient.[facility] Reason for Visit (unrecogniz ed section and content) Reason Comments Establish Care 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LINE WELDER [address] [place] [address] Phone: tel: fax: [facility] [address] [place] [address] Referral ID Status Reason Start Date Expiration Date Visits Requested Visits Authorized [id number] Authorized Auto-Generat ed Referral 08/18/2024 11/16/2024 2 2 Reason Comments Dizziness Nausea Reason Comments Endometrial Biopsy Specialty Diagnoses / Procedures Referred By Contsalima t Referred To Contact [facility] Diagnoses Atypical glandular cells of undetermined significance (MIESHA) on cervical Pap smear Procedures ENDOMETRIAL BIOPSY ENDOMETRIAL BX W/WO ENDOCERVIX BX W/O DILAT SPX Wisam Echols MD [address] [place] [address] Phone: tel: fax: [facility] [address] [place] [address] Referral ID Status Reason Start Date Expiration Date V isits Requested Visits Authorized [id number] Closed Auto-Generate d Referral 08/31/2024 05/26/2025 1 1 Reason Comments Pre-Op Visit Care Teams (unrecognized sec tion and content) Child Study Team Director Relationship Specialty Start Date End Date Eun Stevenson PA-C PCP - General Family Medicine 12/16/18 Child Study Team Director Relationship Specialty Start Date End Date Nolberto Gannon MD [address] [place], [place] [id number] PCP - General Internal Medicine 11/05/22 Child Study Team Director Relationship Specialty Start Date End Date Nolberto Gannon MD [address] [place], [place] [id number] PCP - General Internal Medicine 11/05/22 Child Study Team Director Relationship Specialty Start Date End Date Nolberto Gannon MD [address] [place], [place] [id number] PCP - General Internal Medicine 11/05/22 Child Study Team Director Relationship Specialty Start Date End Date Nolberto Gannon MD [address] [place], [place] [id number] PCP - General Internal Medicine 11/05/22 Child Study Team Director Relationship Specialty Start Date End Date Nolberto Gannon MD [address] [place], [place] [id number] PCP - General Internal Medicine 11/05/22 Shilpa Schofield, CONSUMER LOAN SPECIALIST.LINE WELDER [address] [place] [address] Land Lease Information Clerk Internal Medicine 05/04/24 Child Study Team Director Relationship Specialty Start Date End Date Nolberto Gannon MD [address] [place] [address] PCP - General Internal Medicine 11/05/22 Shilpa Schofield, CONSUMER LOAN SPECIALIST.LINE WELDER [address] [place] [address] Land Lease Information Clerk Internal Medicine 05/04/24 Child Study Team Director Relationship Specialty Start Date End Date Nolberto Gannon MD [address] [place] [address] PCP - General Internal Medicine 11/05/22 Shilpa Schofield, CONSUMER LOAN SPECIALIST.LINE WELDER [address] [place] [address] Land Lease Information Clerk Internal Medicine 05/04/24 Child Study Team Director Relationship Specialty Start Date End Date Nolberto Gannon MD [address] [place] [address] PCP - General Internal Medicine 11/05/22 Shilpa Schofield, CONSUMER LOAN SPECIALIST.LINE WELDER [address] [place] [address] Land Lease Information Clerk Internal Medicine 05/04/24 Child Study Team Director Relationship Specialty Start Date End Date Nolberto Gannon MD [address] [place] [address] PCP - General Internal Medicine 11/05/22 Shilpa Schofield, CONSUMER LOAN SPECIALIST.LINE WELDER [address] [facility] [place] [address] [facility] 05/04/24 Child Study Team Director Relationship Specialty Start Date End Date Nolberto Gannon MD [address] [facility] [place] [address] PCP - General Internal Medicine 11/05/22 Shilpa Schofield, CONSUMER LOAN SPECIALIST.LINE WELDER [address] [place] [address] [facility] Internal [facility] 05/04/24 Child Study Team Director Relationship Specialty Start Date End Date Nolberto Gannon MD [address] [place] [address] PCP - General Internal Medicine 11/05/22 Shilpa Schofield, CONSUMER LOAN SPECIALIST.LINE WELDER [address] [place] [address] [facility] 05/04/24 INFORMATION SOURCE (unrecogn ized section and content) DATE CREATED AUTHOR 11/03/2024 [facility] DATE CREATED AUTHOR AUTHOR'S ORGANIZ ATION 11/18/2024 [facility] FOR RECORDS PERTAINING TO PATIENTS WHO ARE OR HAVE BEEN ENROLLED IN A CHEMICAL DEPENDENCY/SUBSTANCEABUSE PROGRAM, SOME INFORMATION MAY BE OMITTED. This clinical summary was aggregated from multiple sources. Caution should be exercised in using it in the provision of clinical care. This summary normalizes information from multiple sources, and as a consequence, information in this document may materially change the coding, format and clinical context of patient data. In addition, data may be omitted in some cases. CLINICAL DECISIONS SHOULD BE BASED ON THE PRIMARY CLINICAL RECORDS. [employer] [facility]. provides no warranty or guarantee of the accuracy or completeness of information in this document.
[2024-11-20 06:27] LABS: Internal QC Validated? YES +Cl - CLEAR BKGD; Pregnancy, Urine Negative Negative
--- NOTE | 2024-11-20 06:27 | PRE.ANES_ITS ---
ASA Classification* ASA Classification ASA Classification: 2 Assessment & Plan Anesthesia* Anesthesia Assessment Anesthesia Assessment: Discussed sedation and/or anesthesia options, risks, benefits, and alternatives with patient/parents/legal guardian/POA. Questions invited. The patient/parents/legal guardian/POA seems to understand and agrees to proceed with anesthesia plan. Reviewed the physical assessment, medical history, allergy history and patient home medications list prior to surgery/procedure/anesthetic and documented any changes. Performed airway and anesthesia risk assessments. Anesthesia Type Anesthesia Type: MAC History Source History Obtained from:: Patient and Chart Anesthesia Focused Assessment* Temperature: 98.1 F Pulse Rate: 70 Blood Pressure: 133/95 Respiratory Rate: 18 Pulse Ox: 100 Oxygen Delivery Method: Room Air Airway Assessment Mouth opens: >3 cm Mallampati Score: II Teeth Condition: Intact Neck Range of motion (ROM): Full ROM Labs Anesthesia Preop lab: CBC WBC 7.1 K/mm3 (4.4-11.0) 11/11/24 06:04 11/11/24 RBC 4.21 M/mm3 (4.2-5.4) 11/11/24 06:04 11/11/24 Hgb 13.8 g/dL (12.0-15.0) 11/11/24 06:04 11/11/24 Hct 40.9 % (37-47) 11/11/24 06:04 11/11/24 Plt Count 350 K/mm3 (150-450) 11/11/24 06:04 11/11/24 CHEMISTRY COAG Urine Test Pending 11/20/24 06:11 11/20/24 Pre-Assessment Diagnosis/Proposed Procedure Planned Operative Procedure(s): HYSTEROSCOPY, DILATION AND CURRETTAGE, POLYPECTOMY, POSSIBLE IUD INSERTION Anesthesia History 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 When Was Last Pacemaker Check QUESTION #4 FULL TEXT: You/Your Family Experience fever (hyperthermia) with Anesthesia Any additional information?: No Last Oral Intake Last Oral intake: Last Oral Intake NPO since Meds taken in AM with sips of water? Meds patient instructed to take am of surgery Any additional information?: Yes NPO since: 21:30 Meds taken in AM with sips of water?: No PONV PONV - cooking appliance repair technician: PONV - cooking appliance repair technician Female Yes 11/10/24 08:21 HX of Motion Sickness No 11/10/24 08:21 HX of N/V After Surgery Yes 11/10/24 08:21 Non-Smoker Yes 11/10/24 08:21 Duration of Surgery greater No 11/10/24 08:21 than 60 minutes Number of Risk Factors 3 11/10/24 08:21 PONV Score Moderate Risk 11/10/24 08:21 Any additional information?: No Respiratory Assessment Respiratory Assessment - cooking appliance repair technician: Respiratory Tract Infection Hx - cooking appliance repair technician Hx Respiratory Tract Infection No 11/10/24 08:21 Any additional information?: No STOP Sleep Apnea STOP Sleep Apnea - cooking appliance repair technician: STOP Sleep Apnea - cooking appliance repair technician Hx Hypertension No 11/10/24 08:21 Hx Sleep Apnea No 11/10/24 08:21 CPAP BIPAP Do you snore loudly (louder No 11/10/24 08:21 than talking or can be heard Do you often feel tired/ No 11/10/24 08:21 fatigued/ sleepy during daytime? Has anyone observed you stop No 11/10/24 08:21 breathing during sleep? STOP Results Negative 11/10/24 08:21 QUESTION #5 FULL TEXT : Do you snore loudly (louder than talking or can be heard through closed doors)? Any additional information?: No Tobacco Use History Tobacco Use History - cooking appliance repair technician: Tobacco Use History - cooking appliance repair technician Tobacco Use Smoking Status Never smoker 11/10/24 08:21 Hx Tobacco Use No 11/10/24 08:21 Years Smoking Packs Smoked per Day Smoking Cessation Date was within the last 15 years Hx Smoking Cessation Date Hx Smoking Cessation Counseling Any additional information?: No Hematologic Medial History Hematologic Hx - cooking appliance repair technician: Hematologic Medical Hx - ear nose and throat specialist Hx of Blood Transfusion No 11/10/24 08:21 Hx of Transfusion in last 3 No 11/10/24 08:21 Months Date of Last Transfusion (if within last 3 months) Ever experience any problems No 11/10/24 08:21 with transfusion(s)? Specify any problems Hx of Preganancy in last 3 No 11/10/24 08:21 Months Nurse Filling Out Transfusion [id number] 11/10/24 08:21 & Questions: Date: 11/10/24 11/10/24 08:21 Time: 08:23 11/10/24 08:21 Patient unable to answer at this time (ie. confused, unrespo Any additional information?: No /Reproduction History /Reproductive History - cooking appliance repair technician: /Reproductive Hx- cooking appliance repair technician Hx Now No 11/10/24 08:21 Gestational Age (in weeks): EDC: Hx Hx Para Hx Section SAB No 11/10/24 08:21 Any additional information?: No Active Medications Active Medications: Current Medications Generic Name Dose Route Start Last Admin Trade Name Freq PRN Reason Stop Dose Admin Lactated Ringer's 1,000 mls @ 15 mls/hr 11/20/24 06:15 IV .Q48H TAM Levonorgestrel 1 each 11/20/24 07:30 Levonorgestrel Iud (Liletta) INTRA-UTER 11/20/24 07:31 X1 ONE PFSH Medical History delivery delivered Wears glasses Wears contact lenses Heartburn Non-smoker Home Medications ?Medication ?Instructions ?Recorded ?Last Taken ?Type NK 11/18/24 Unknown History Allergy/AdvReac Type Severity Reaction Status Date / Time No Known Allergies Allergy Verified 11/20/24 06:29 Surgical History H/O wisdom tooth extraction H/O tubal ligation Social History Smoking Status: Never smoker Review of Systems (Anesthesia) ROS Narrative System reviewed and no additional complaints, except as documented. Gastrointestinal Gastrointestinal: Reports heartburn
[2024-11-20] MEDS: Lactated Ringers 1,000 ML 15 ML IV (06:33)
--- NOTE | 2024-11-20 07:30 | EMB_PTH ---
PATIENT: VERA YAN [place] [facility] [id number] AGE/SX: 39/F ROOM: RE11/20/[address]: Dr. Carisa Franco DO : 1985 BED: DIS: 11/20/2024 SPEC #: [id number] RECD: 11/20/24 09:33 STATUS: MARTHA PAULINA #: [id number] LAZARO: 11/20/24 07:[address]: Carisa Franco DEPT: SURGICAL PATHOLOGY RECD BY: Christopher Otto ENTERED: 11/20/24 09:57 SP TYPE: ENDOM BX/C OT DR: Dr. Nolberto Schaffer MD Tissues: A - Endometrium, NOS Procedures: Surgery Specimen Level IV HEADER OPERATION: Hysteroscopy, D&C PRE-OP DIAGNOSIS: Endometrial polyp, dysmenorrhea TISSUE SUBMITTED: A- Endometrial polyp and curettings MICROSCOPIC DIAGNOSIS A. Endometrium, dilation and curettage: * Secretory endometrium with areas suggestive of polyp formation MICROSCOPIC DESCRIPTION Slides are reviewed. GROSS DESCRIPTION Received in formalin labeled with the patient's name and date of . Designated as endometrial polyp and curettings is a 3.5 x 3.5 x 0.9 cm aggregate of garces-pink to red, soft to rubbery tissue fragments, mucoid material and clotted blood. Entirely submitted in 4 cassettes. [place] 11/20/2024 CPT:76457
[2024-11-20] MEDS: Levonorgestrel IUD (Liletta) 1 EACH INTRA-UTER (07:59)
[2024-11-20] MEDS: Silver Nitrate (BKC) 1 EACH (08:03)
--- NOTE | 2024-11-20 08:07 | DCINST_ITS ---
Discharge Instructions Diet Discharge Diet: No restrictions DC O2, CPAP, BIPAP needs Home O2 Discharge instructions: No Dressing / Incision Discharge Activity: May Not Drive (for 24 hours) and May Not Shower (for 24 hours) May resume sexual activity in: 1-2 weeks (nothing in the vagina and no soaking in water for 1 week) Weight Bearing Status: Weight bearing as tolerated Lifting Restrictions: none Dressing / Incision Call your doctor if you observe: Fever of 101 or Higher, Inability to urinate, Using more than 1 pad per hour, Shortness of breath, Dizziness, Swelling in the ankles, Chest pain, Increased palpitations (irregular heartbeat), Calf discomfort and Uncontrolled pain Follow Up Care Please Follow Up With: Carisa Franco DO When: 1 week Test Results: Test results from this visit will be discussed in further detail at your follow- up appointment, if applicable. Discharge Plan Admission Primary Reason for Your Visit: surgery Attending Provider: Carisa Franco Primary Care Provider: Nolberto Schaffer Patient Instructions: Dilation and Curettage Print Language: Marshallese Discharge Orders/Prescriptions Prescriptions: No Action NK Referrals / Follow Up: Eun Stevenson PA-C [Non-Staff] - Disposition Disposition (needs filled in before D/C Order can be placed): Home, Self Care
--- NOTE | 2024-11-20 08:15 | PCM.POST.ANE ---
Anesthesia: Postop Eval I Current Vital Signs Temperature: 97.2 F Pulse Rate: 81 Blood Pressure: 135/84 Respiratory Rate: 16 Pulse Ox: 100 Assessment Airway patent: Yes Spontaneous unlabored respirations: Yes nausea: No Vomiting: No Anesthesia Complication: No Fluid Hydration Crystalloid volume administer (ml): 500 Total IV fluid infused: 500 Progress Note Anesthesia document: Postop Eval 1 completed: Yes
--- NOTE | 2024-11-20 08:26 | PCM.OPRPT ---
Problems Associated Problem List Diagnoses (1) Menorrhagia: (2) Endometrial polyp: Operative Report (Standard) Operative Information Date of Procedure: 11/20/24 Pre-Operative Diagnosis: Menorrhagia, DUB, endometrial polyp Post-Operative Diagnosis: As above Surgery/Procedure Performed: Hysteroscopy, D&C, polypectomy, Liletta IUD insertion composition weatherboard installer: Yes Grade Setter: Radha Echavarria PGY-3 Tasks completed by teacher's assistant: Retracting Type of Anesthesia: MAC RN Documented Start/Stop Times: Operation Date: 11/20/24 07:30 Case Time Into Pre-Op 11/20/24 06:01 Out of Pre-Op 11/20/24 07:22 Anesthesia Start 11/20/24 07:25 Into Room 11/20/24 07:25 Procedure Start 11/20/24 07:45 Procedure End 11/20/24 08:03 Anesthesia End 11/20/24 08:09 Out of Room 11/20/24 08:09 Into Recovery 11/20/24 08:11 Procedure Start Time: 07:45 Procedure Stop Time: 08:03 Select all DRAINS/GRAFTS/IMPLANTS that apply: None Estimated Blood Loss: < 50 mL Fluids Replaced: 400 mL deficit Specimen collected: Yes Description of specimen(s) removed: Endometrial polyp Endometrial curettings Description of surgery: The patient was taken to the operating room where MAC anesthesia was induced and found to be adequate. She was prepped and draped in the dorsal lithotomy position using yellowfin stirrups. A weighted speculum was placed in the vagina to expose the cervix. The anterior lip of the cervix was grasped with a single-tooth tenaculum. The cervix was serially dilated to accommodate the Symphion hysteroscope. The Symphion hysteroscope was advanced into the uterus, and the uterus was distended with normal saline as distention media. The endometrium was thickened appearing with 2 endometrial polyps noted along the posterior uterine wall. The Symphion resection device was used to completely resect the endometrial polyps. Bilateral tubal ostia were visualized. The hysteroscope was then removed. A sharp curettage was performed for a moderate amount of tissue. Endometrial curettings and polyps were sent to pathology for review. The uterus sounded to 9 cm. The Liletta IUD was inserted in usual sterile fashion at the fundus of the uterus. The IUD strings were trimmed to 2 cm. Bleeding was scant. All instruments were removed from the vagina. A vaginal sweep was performed. Instrument sponge counts were correct. The patient was taken to the recovery in stable condition. Surgical Findings: Thickened endometrium with 2 endometrial polyps noted. Uterus sounded to 9 cm Complications Complications: No Admit VTE Documentation VTE Present on Admission: No VTE Mechan Device Prophylaxis: SCD's
[2024-11-20] MEDS: Acetaminophen 325 MG Tablet 650 MG PO (08:46)
--- NOTE | 2024-11-23 09:53 | POSTOPAN2_ITS ---
Anesthesia Postop Eval I Sum Postop Eval Completion status Anesthesia document: Postop Eval 1 completed: Yes Anesthesia Postop Eval I Summary Anesthesia Postop Eval I Summary: Anesthesia Postop Eval I: Assessment Summary Airway patent Yes 11/20/24 08:15 [employer]SPORTATION DRIVER.TNES Spontaneous unlabored Yes 11/20/24 08:15 [employer]SPORTATION DRIVER.TNES respirations Mental status nausea No 11/20/24 08:15 [employer]ING [employer]SPORTATION DRIVER.TNES Vomiting No 11/20/24 08:15 [employer]DING TRANSPORTATION DRIVER.TNES Anesthesia Postop Eval I: Fluid Summary Crystalloid volume administer 500 11/20/24 08:15 [employer]DING TRANSPORTATION DRIVER.TNES (ml) Colloids volume administered ( ml) Blood Product volume administered (ml) Total IV fluid infused 500 11/20/24 08:15 [employer]DING TRANSPORTATION DRIVER.TNES Anesthesia Postop Eval I: Summary Notes Anesthesia Complication No 11/20/24 08:15 [employer]EDDING TRANSPORTATION DRIVER.TNES Anesthesia Complication Comment: Post-operative progress note Anesthesia: Postop Eval II Evaluation Mental status: Awake and Calm Pain Level: 1 nausea: No Vomiting: No Complications Anesthesia Complication: No
--- NOTE | 2024-11-23 09:53 | PCM.POSTANE2 ---
Anesthesia Postop Eval I Sum Postop Eval Completion status Anesthesia document: Postop Eval 1 completed: Yes Anesthesia Postop Eval I Summary Anesthesia Postop Eval I Summary: Anesthesia Postop Eval I: Assessment Summary Airway patent Yes 11/20/24 08:15 GRID [email or web address].[email or web address] Spontaneous unlabored Yes 11/20/24 08:15 GRID [email or web address].TNES respirations Mental status nausea No 11/20/24 08:15 GRID [email or web address].TNES Vomiting No 11/20/24 08:15 GRID [email or web address].TNES Anesthesia Postop Eval I: Fluid Summary Crystalloid volume administer 500 11/20/24 08:15 GRID MAKER.TNES (ml) Colloids volume administered ( ml) Blood Product volume administered (ml) Total IV fluid infused 500 11/20/24 08:15 GRID [email or web address].TNES Anesthesia Postop Eval I: Summary Notes Anesthesia Complication No 11/20/24 08:15 GRID MAKER.TNES Anesthesia Complication Comment: Post-operative progress note Anesthesia: Postop Eval II Evaluation Mental status: Awake and Calm Pain Level: 1 nausea: No Vomiting: No Complications Anesthesia Complication: No
== END 2024-11-20 08:57 | disposition home or self-care (01) ==
LOC: SDC 05:51 → AC 05:53
PROVIDERS: PCP Internal Medicine; Referring Provider Obstetrics & Gynecology; Visit Provider Obstetrics & Gynecology
PROC: 0UB98ZZ Excision of Uterus, Via Natural or Artificial Opening Endoscopic (ICD-10-PCS; CPT 58558; principal; 2024-11-20 07:15)
DX: N84.0 Polyp of corpus uteri (principal); N92.0 Excessive and frequent menstruation with regular cycle; N93.8 Other specified abnormal uterine and vaginal bleeding; Z30.430 Encounter for insertion of intrauterine contraceptive device
CPT/HCPCS: 58558; 58300; 00952; 36415; 81025; 85027; 86850; 86900; 86901; 88305; J2405